=== PATIENT | female | born 1955 | race Caucasian/White ===

== ENCOUNTER 2022-04-10 22:28 | Observation (INO) ==
[2022-04-10] MEDS ORDERED: dilTIAZem HCl 5 MG/ML 5 ML VIAL IV STA (22:55)
[2022-04-10] MEDS ORDERED: dilTIAZem HCl 5 MG/ML 5 ML VIAL IV ONE (22:56)
[2022-04-10 22:57] LABS: Basophils # (auto) 0.03 K/uL (0-0.2); Basophils % (auto) 0.5 %; Eosinophils # (auto) 0.19 K/uL (0-0.50); Immature Granulocytes # (auto) 0.01 K/uL (0.00-0.02); Immature Granulocytes % (auto) 0.2 %; Lymphocytes # (auto) 2.64 K/uL (1.2-3.4); Lymphocytes % (auto) 41.1 %; Mean Corpuscular Hemoglobin 31.5 pg (25.0-34.0); Mean Corpuscular Hgb Conc 34.1 g/dL (32.0-36.0); Mean Corpuscular Volume 92.3 fL (80.0-100.0); Mean Platelet Volume 10.8 fL (9.4-12.3); Monocytes # (auto) 0.45 K/uL (0.24-0.82); Neutrophils % (auto) 48.2 %; Platelet Count 237 K/uL (130-400); RDW Coefficient of Variation 12.8 % (11.5-14.5); RDW Standard Deviation 43.6 fL (36.4-46.3); Red Blood Count 4.44 M/uL (3.93-5.22); White Blood Count 6.42 K/ul (4.8-10.8)
[2022-04-10] MEDS ORDERED: LORazepam 2 MG/2 ML SYR IV STA (23:02)
[2022-04-10] MEDS ORDERED: STAT IV Infusion **Titration per Protocol STA (23:05)
[2022-04-10 23:10] LABS: Partial Thromboplastin Ratio 0.9; Prothrombin Time 10.3 Seconds (9.0-12.0)
[2022-04-10] MEDS ORDERED: dilTIAZem HCL 125 MG in DEXTROSE 5% 100 ML IV SCH (23:15)
[2022-04-10 23:28] LABS: Albumin Globulin Ratio 1.4 (0.9-2); Albumin Level 4.2 gm/dl (3.4-5.0); BUN Creatinine Ratio 17.9 (10-20); Bilirubin,Total 0.4 mg/dl (0.2-1.0); Calcium 9.3 mg/dl (8.5-10.1); Creatinine Clr Calc Pharmacy 95.7 ml/min; Est GFR (African American) 72.3 ml/min; Est GFR (Non-African American) 62.4 ml/min; Globulin 2.9 gm/dl (2.5-4.0); Potassium 4.4 mmol/L (3.5-5.1); Total Protein 7.1 gm/dl (6.0-8.3); Troponin I High Sensitivity 5.8 pg/ml (0-14)
[2022-04-10] MEDS ORDERED: SODIUM CHLORIDE 0.9% 1000ML 1,000 ML IV ONE (23:33)
[2022-04-10] MEDS ORDERED: THIAMINE HCL 100 MG in SYRINGE 9 ML IV STA (23:51)
[2022-04-11] MEDS ORDERED: METOPROLOL TARTRATE 25 MG TAB PO STA (00:25)
--- NOTE | 2022-04-11 00:28 | History & Physical Report ---
Date of Service April 11, 2022 Assessment & Plan (1) Atrial fibrillation with rapid ventricular response: Plan: ? Secondary to alcohol binging History PVCs hypertension, currently stable past tobacco abuse PCU Beta-bev for rate control IV heparin for thromboembolic prophylaxis TTE, Cardiology consult Re: New onset A. fib DT precautions Initiate ROLA S once with signs of alcohol withdrawal DVT prophylaxis with IV heparin Full code Text document was generated using [employer] voice recognition software. It may contain grammatical or spelling errors. Kindly contact undersigned for clarification of any documentation item in question. History of Present Illness Chief Complaint: Palpitations Primary Care Provider: Dr. Arnold (PCP) and Dr. Coleman (dance director) from [place] [employer], [place] History obtained from patient, family, and records. Patient maintains residences in [place], [place] and [place]. Medical history significant for hypertension, episodic PVCs, past tobacco abuse. Last year, patient noted palpitations. Found to have PVCs on dance director work-up from [place]. Patient prescribed metoprolol to be taken as needed for bothersome palpitations. Patient in town over the weekend. Admits to alcohol binging from time to time. Yesterday afternoon, patient experienced palpitations a little more severe and protracted than usual. No response to 2 tablets of metoprolol. Patient also took a baby aspirin. No actual chest pain, SOB or stress. Patient brought to ER for evaluation. Patient noted to be in rapid A. fib at the ER. IV Cardizem bolus administered at the ER. 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 Allergies Allergy/AdvReac Type Severity Reaction Status Date / Time bacitracin Allergy Rash Verified 04/10/22 23:55 [From Neosporin ([id number])] neomycin Allergy Rash Verified 04/10/22 23:55 [From Neosporin ([id number])] polymyxin B Allergy Rash Verified 04/10/22 23:55 [From Neosporin ([id number])] Home Medications Medication Instructions Recorded Confirmed Type alprazolam 0.5 mg tablet 0.5 mg PO DAILY PRN Anxiety 04/10/22 04/10/22 History cholecalciferol (vitamin D3) 50 2,000 unit PO DAILY 04/10/22 04/11/22 History mcg (2,000 unit) tablet (Vitamin D3) gabapentin 600 mg tablet 1,200 mg PO BID 04/10/22 04/10/22 History losartan 50 mg tablet 50 mg PO DAILY 04/10/22 04/10/22 History melatonin 5 mg tablet 5 mg PO HS PRN Sleep 04/10/22 04/10/22 History omega 0-ilz-vkg-fish oil 1,200 mg 1,200 cap PO DAILY 04/10/22 04/11/22 History (144 mg-216 mg) capsule (Fish Oil) vitamin B complex 1 tab PO DAILY 04/10/22 04/11/22 History Past Med/Surg History Medical History High blood pressure Surgical History Hx of cholecystectomy Social History Smoking Status: Former smoker Hx Alcohol Use: Yes Alcohol type: wine Hx Substance Use: No Preferred Language: French Communication Ability: Effective 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: No Beliefs That Will Affect Care: Hindu Current Living Situation: Spouse Other Information That Helps Us Care for You: No Feels Safe at Home: Yes Safety Concerns: Feels Safe At This Time Assistive Devices: Glasses Assistive Devices Comment: Pt deaf right ear Review of Systems Review of Systems: As per HPI, all other systems reviewed and negative Physical Exam Physical Exam: GENERAL: Comfortable, pleasant, morbidly obese, no respiratory distress SKIN: Normal color, warm HEENT: [place] palpebral conjunctivae, no ptosis, moist buccal mucosa NECK : Supple, short neck, no tenderness CHEST : CTA, no tenderness HEART : Irregular, no obvious murmurs ABDOMEN: distention, nontender EXTREMITIES : Minimal LE swelling/tenderness, no other conspicuous deformities noted NEUROLOGIC : Coherent, no facial asymmetry, no other gross focality Results & Data Results & Data ([facility]) Vital Signs (Past 12 Hours) Vital Signs Temp Pulse Resp BP Pulse Ox O2 Del Method 04/10/22 23:31 112 H 16 116/72 96 Room Air 04/10/22 23:19 86 17 109/63 94 Room Air 04/10/22 23:01 78 24 104/71 95 Room Air 04/10/22 22:51 150 H 25 H 162/123 H 96 Room Air 04/10/22 22:31 36.5 C 117 H 18 148/95 H 95 Room Air Laboratory Results Laboratory Results WBC 6.42 K/ul (4.8-10.8) 04/10/22 22:42 RBC 4.44 M/uL (3.93-5.22) 04/10/22 22:42 Hgb 14.0 g/dl (12.0-16.0) 04/10/22 22:42 Hct 41.0 % (34.1-44.9) 04/10/22 22:42 MCV 92.3 fL (80.0-100.0) 04/10/22 22:42 MCH 31.5 pg (25.0-34.0) 04/10/22 22:42 MCHC 34.1 g/dL (32.0-36.0) 04/10/22 22:42 RDW Std Deviation 43.6 fL (36.4-46.3) 04/10/22 22:42 RDW Coeff of Jian 12.8 % (11.5-14.5) 04/10/22 22:42 Plt Count 237 K/uL (130-400) 04/10/22 22:42 MPV 10.8 fL (9.4-12.3) 04/10/22 22:42 Immature Gran % (Auto) 0.2 % 04/10/22 22:42 Neut % (Auto) 48.2 % 04/10/22 22:42 Lymph % (Auto) 41.1 % 04/10/22 22:42 [place] % (Auto) 7.0 % 04/10/22 22:42 Eos % (Auto) 3.0 % 04/10/22 22:42 Baso % (Auto) 0.5 % 04/10/22 22:42 Neut # (Auto) 3.10 K/uL (1.4-6.5) 04/10/22 22:42 Lymph # (Auto) 2.64 K/uL (1.2-3.4) 04/10/22 22:42 [place] # (Auto) 0.45 K/uL (0.24-0.82) 04/10/22 22:42 Eos # (Auto) 0.19 K/uL (0-0.50) 04/10/22 22:42 Baso # (Auto) 0.03 K/uL (0-0.2) 04/10/22 22:42 Immature Gran # (Auto) 0.01 K/uL (0.00-0.02) 04/10/22 22:42 PT 10.3 Seconds (9.0-12.0) 04/10/22 22:42 INR 1.0 (0.9-1.1) 04/10/22 22:42 APTT 26.0 Seconds (21.0-31.0) 04/10/22 22:42 PTT Ratio 0.9 04/10/22 22:42 Sodium 140 mmol/L (136-145) 04/10/22 22:42 Potassium 4.4 mmol/L (3.5-5.1) 04/10/22 22:42 Chloride 107 mmol/L (98-107) 04/10/22 22:42 Carbon Dioxide 25 mmol/L (21-32) 04/10/22 22:42 Anion Gap 8 (3-11) 04/10/22 22:42 BUN 17 mg/dl (6-23) 04/10/22 22:42 Creatinine 0.95 mg/dl (0.6-1.2) 04/10/22 22:42 Est Cr Clr Drug Dosing 95.7 ml/min 04/10/22 22:42 Est GFR ( Amer) 72.3 ml/min 04/10/22 22:42 Est GFR (Non-Af Amer) 62.4 ml/min 04/10/22 22:42 BUN/Creatinine Ratio 17.9 (10-20) 04/10/22 22:42 Glucose 109 mg/dl (70-99(Fasting)) H 04/10/22 22:42 Calcium 9.3 mg/dl (8.5-10.1) 04/10/22 22:42 Magnesium 2.0 mg/dl (1.7-2.4) 04/10/22 22:31 Total Bilirubin 0.4 mg/dl (0.2-1.0) 04/10/22 22:42 AST 16 U/L (13-39) 04/10/22 22:42 ALT 15 U/L (7-52) 04/10/22 22:42 Alkaline Phosphatase 58 U/L (34-104) 04/10/22 22:42 Troponin I High Sens 5.8 pg/ml (0-14) 04/10/22 22:42 Total Protein 7.1 gm/dl (6.0-8.3) 04/10/22 22:42 Albumin 4.2 gm/dl (3.4-5.0) 04/10/22 22:42 Globulin 2.9 gm/dl (2.5-4.0) 04/10/22 22:42 Albumin/Globulin Ratio 1.4 (0.9-2) 04/10/22 22:42 TSH 1.714 uIu/ml (0.300-4.500) 04/10/22 22:42 SARS-CoV-2, RNA, NAAT NEGATIVE (NEGATIVE) 04/10/22 23:02 Diagnostic Findings Chest x-ray as per my interpretation atelectasis EKG as per my interpretation : Rate 140, A. fib, normal axis, ST depression anterolateral leads
[2022-04-11] MEDS ORDERED: ALPRAZolam 0.5 MG TABLET PO PRN (00:36)
[2022-04-11] MEDS ORDERED: Heparin IV Adult Wt-Based Standard *NO* Bolus Protocol IV STA (00:41)
[2022-04-11] MEDS ORDERED: SODIUM CHLORIDE 0.9% 1000ML 1,000 ML IV ONE (00:51)
[2022-04-11] MEDS: HEPARIN SODIUM/DEXTROSE 25,000 UNITS/500 ML BAG IV SCH ×2 (00:55→14:08)
--- NOTE | 2022-04-11 01:07 | Emergency Department Note ---
History of Present Illness General Chief complaint: Arrhythmia/Palpitations Stated complaint: IRREGULAR HEART BEATS Time Seen by Provider: 04/10/22 22:49 History of Present Illness This 66 yo presents to the ER complaining of racing heart who was binge drinking yesterday at the [facility] Location: Chest Quality: Racing Severity: Moderate Duration: Tonight Timing: Tonight Context: Patient was concerned and came in Modifying factors: better with nothing; worse with nothing No alcohol or drug use today. No history of A. fib. She is visiting from [place]. Patient denies fevers, vomiting, diarrhea, flulike illness. Home Medications Medication Instructions Recorded Confirmed Type alprazolam 0.5 mg tablet 0.5 mg PO DAILY PRN Anxiety 04/10/22 04/10/22 History cholecalciferol (vitamin D3) 50 2,000 unit PO DAILY 04/10/22 04/11/22 History mcg (2,000 unit) tablet (Vitamin D3) gabapentin 600 mg tablet 1,200 mg PO BID 04/10/22 04/10/22 History losartan 50 mg tablet 50 mg PO DAILY 04/10/22 04/10/22 History melatonin 5 mg tablet 5 mg PO HS PRN Sleep 04/10/22 04/10/22 History omega 0-qpj-ymz-fish oil 1,200 mg 1,200 cap PO DAILY 04/10/22 04/11/22 History (144 mg-216 mg) capsule (Fish Oil) vitamin B complex 1 tab PO DAILY 04/10/22 04/11/22 History Allergies Allergy/AdvReac Type Severity Reaction Status Date / Time bacitracin Allergy Rash Verified 04/10/22 23:55 [From Neosporin ([id number])] neomycin Allergy Rash Verified 04/10/22 23:55 [From Neosporin ([id number])] polymyxin B Allergy Rash Verified 04/10/22 23:55 [From Neosporin ([id number])] Past Med/Surg History Medical History High blood pressure Surgical History Hx of cholecystectomy Social History Smoking Status: Former smoker Feels Safe at Home: Yes Review of Systems A total of 10 systems reviewed and were otherwise negative Physical Exam Vital Signs Vital Signs - 24 hr 04/10/22 22:31 04/10/22 22:51 04/10/22 23:01 Temperature 36.5 C Temperature Source Temporal Artery Scan Pulse Rate 117 H 150 H 78 Pulse Rate from SpO2 Sensor 99 H Respiratory Rate 18 25 H 24 Respiratory Effort / Characteristics Non-Labored Spontaneous Respiratory Depth Normal Blood Pressure 148/95 H 162/123 H 104/71 Blood Pressure Mean 112 136 82 Blood Pressure Position Sitting Pulse Oximetry 95 96 95 Oxygen Delivery Method Room Air Room Air Room Air Sepsis Recent Fever Within 48 Hours No Sepsis New/Unexplained Change in Mental Status N/A Sepsis Action Taken by Nursing No Action Required 04/10/22 23:19 04/10/22 23:31 04/11/22 00:02 Temperature Temperature Source Pulse Rate 86 112 H 115 H Pulse Rate from SpO2 Sensor 74 Respiratory Rate 17 16 18 Respiratory Effort / Characteristics Respiratory Depth Blood Pressure 109/63 116/72 129/91 Blood Pressure Mean 78 86 103 Blood Pressure Position Pulse Oximetry 94 96 98 Oxygen Delivery Method Room Air Room Air Room Air Sepsis Recent Fever Within 48 Hours Sepsis New/Unexplained Change in Mental Status Sepsis Action Taken by Nursing VITALS: Vitals are noted on the nurse's note and reviewed by myself. Vital signs tachycardic. GENERAL: Pleasant female anxious appearing, in no acute distress, nondiaphoretic, well-developed well-nourished. SKIN: The skin was without rashes, erythema, or bruising. There is no tenting of the skin. Capillary reflex less than 2 seconds. HEAD: Normocephalic atraumatic. EARS: External auditory canals clear, EYES: Pupils equal round and reactive to light and accommodation. Conjunctivae without injection, sclerae without icterus. Extraocular movements intact. NOSE: Patent, turbinates without inflammation or discharge. MOUTH: Mucous membranes moist. Pharynx without erythema or exudate. Uvula midline. Airway patent. Tongue does not deviate. NECK: Supple without nuchal rigidity. No lymphadenopathy. No thyromegaly. Cervical spine is nontender. No JVD. HEART: Tachycardic irregularly irregular LUNGS: Clear to auscultation bilaterally without wheezes, rales or rhonchi. No retractions or accessory muscle use. ABDOMEN: Positive bowel sounds x 4. Normal tympanic percussion. Soft, nontend er, without masses or organomegaly. Espinoza sign negative. No guarding or rebound tenderness. No CVA tenderness MUSCULOSKELETAL: No muscle atrophy, erythema, noted. NEURO: Patient was alert and oriented to person place and time. Normal sensation to light and sharp touch. No focal neurological deficits. Course Administered Medications Heparin Sodium/Dextrose (Heparin Sodium/Dextrose) 25,000 units in 500 mls @ 37 mls/hr IV .[id number] COUNTS INCLUDE 234 BEDS AT THE [facility]; Protocol Stop: 05/11/22 00:44 Last Admin: 04/11/22 00:55 Dose: 1,850 units/hr, 37 mls/hr Documented By: WHIT Co-signed By: MARIA Discontinued Medications Diltiazem HCl (Diltiazem Hcl 5 Mg/Ml 5 Ml Vial) 20 mg IV NOW STA Stop: 04/10/22 22:56 Last Admin: 04/10/22 22:58 Dose: 20 mg Documented By: WHIT Co-signed By: GRICELDA Diltiazem HCl (Diltiazem Hcl 5 Mg/Ml 5 Ml Vial) Confirm Administered Dose 25 mg IV .STK-MED ONE Stop: 04/10/22 22:57 Last Admin: 04/10/22 22:59 Dose: Not Given Documented By: WHIT Diltiazem HCl 125 mg/ Dextrose 125 mls @ 5 mls/hr IV .Q24H COUNTS INCLUDE 234 BEDS AT THE [facility]; Protocol Stop: 05/10/22 23:14 Last Admin: 04/11/22 00:50 Dose: Not Given Documented By: WHIT Sodium Chloride (Nss 1000ml) 1,000 mls @ 999 mls/hr IV .Q1H1M ONE Stop: 04/11/22 00:33 Last Admin: 04/10/22 23:52 Dose: 999 mls/hr Documented By: WHIT Thiamine HCl 100 mg/ Syringe 10 mls @ 2 mls/min IV NOW STA Stop: 04/10/22 23:55 Last Admin: 04/11/22 00:13 Dose: 2 mls/min Documented By: WHIT Lorazepam (Lorazepam 2 Mg/2 Ml Syr) 1 mg IV NOW STA; Protocol Stop: 04/10/22 23:03 Last Admin: 04/10/22 23:09 Dose: 1 mg Documented By: WHIT Metoprolol Tartrate (Metoprolol Tartrate 25 Mg Tab) 25 mg PO NOW STA Stop: 04/11/22 00:26 Last Admin: 04/11/22 00:59 Dose: 25 mg Documented By: KATHERINE Co-signed By: WHIT Critical Care Time Critical Care Time: Yes Total Critical Care Time: 35 I have personally spent 35 minutes of critical care time in the direct management of this patient. This includes bedside care, interpretation of diagnostic studies, and testing, discussion with consultants, patient, and family members, and other required patient management activities. This 35 minutes is in excess of all separately billable procedures. Medical Decision Making Medical Records Attestation: I reviewed the patient's medical records. Home Medications Current Medication List: was personally reviewed by me Laboratory Data Attestation: I reviewed the patient's lab results. Result diagrams: 04/10/22 22:42 04/10/22 22:42 Lab Results 04/10/22 04/10/22 04/10/22 Range/Units 22:31 22:42 22:42 WBC 6.42 (4.8-10.8) K/ul RBC 4.44 (3.93-5.22) M/uL Hgb 14.0 (12.0-16.0) g/dl Hct 41.0 (34.1-44.9) % MCV 92.3 (80.0-100.0) fL MCH 31.5 (25.0-34.0) pg MCHC 34.1 (32.0-36.0) g/dL RDW Std Deviation 43.6 (36.4-46.3) fL RDW Coeff of Jian 12.8 (11.5-14.5) % Plt Count 237 (130-400) K/uL MPV 10.8 (9.4-12.3) fL Immature Gran % (Auto) 0.2 % Neut % (Auto) 48.2 % Lymph % (Auto) 41.1 % [place] % (Auto) 7.0 % Eos % (Auto) 3.0 % Baso % (Auto) 0.5 % Neut # (Auto) 3.10 (1.4-6.5) K/uL Lymph # (Auto) 2.64 (1.2-3.4) K/uL [place] # (Auto) 0.45 (0.24-0.82) K/uL Eos # (Auto) 0.19 (0-0.50) K/uL Baso # (Auto) 0.03 (0-0.2) K/uL Immature Gran # (Auto) 0.01 (0.00-0.02) K/uL PT 10.3 (9.0-12.0) Seconds INR 1.0 (0.9-1.1) APTT 26.0 (21.0-31.0) Seconds PTT Ratio 0.9 Sodium (136-145) mmol/L Potassium (3.5-5.1) mmol/L Chloride (98-107) mmol/L Carbon Dioxide (21-32) mmol/L Anion Gap (3-11) BUN (6-23) mg/dl Creatinine (0.6-1.2) mg/dl Est Cr Clr Drug Dosing ml/min Est GFR ( Amer) ml/min Est GFR (Non-Af Amer) ml/min BUN/Creatinine Ratio (10-20) Glucose (70-99(Fasting)) mg/dl Calcium (8.5-10.1) mg/dl Magnesium 2.0 (1.7-2.4) mg/dl Total Bilirubin (0.2-1.0) mg/dl AST (13-39) U/L ALT (7-52) U/L Alkaline Phosphatase (34-104) U/L Troponin I High Sens (0-14) pg/ml Total Protein (6.0-8.3) gm/dl Albumin (3.4-5.0) gm/dl Globulin (2.5-4.0) gm/dl Albumin/Globulin Ratio (0.9-2) TSH (0.300-4.500) uIu/ml SARS-CoV-2, RNA, NAAT (NEGATIVE) 04/10/22 04/10/22 04/10/22 Range/Units 22:42 22:42 23:02 WBC (4.8-10.8) K/ul RBC (3.93-5.22) M/uL Hgb (12.0-16.0) g/dl Hct (34.1-44.9) % MCV (80.0-100.0) fL MCH (25.0-34.0) pg MCHC (32.0-36.0) g/dL RDW Std Deviation (36.4-46.3) fL RDW Coeff of Jian (11.5-14.5) % Plt Count (130-400) K/uL MPV (9.4-12.3) fL Immature Gran % (Auto) % Neut % (Auto) % Lymph % (Auto) % [place] % (Auto) % Eos % (Auto) % Baso % (Auto) % Neut # (Auto) (1.4-6.5) K/uL Lymph # (Auto) (1.2-3.4) K/uL [place] # (Auto) (0.24-0.82) K/uL Eos # (Auto) (0-0.50) K/uL Baso # (Auto) (0-0.2) K/uL Immature Gran # (Auto) (0.00-0.02) K/uL PT (9.0-12.0) Seconds INR (0.9-1.1) APTT (21.0-31.0) Seconds PTT Ratio Sodium 140 (136-145) mmol/L Potassium 4.4 (3.5-5.1) mmol/L Chloride 107 (98-107) mmol/L Carbon Dioxide 25 (21-32) mmol/L Anion Gap 8 (3-11) BUN 17 (6-23) mg/dl Creatinine 0.95 (0.6-1.2) mg/dl Est Cr Clr Drug Dosing 95.7 ml/min Est GFR ( Amer) 72.3 ml/min Est GFR (Non-Af Amer) 62.4 ml/min BUN/Creatinine Ratio 17.9 (10-20) Glucose 109 H (70-99(Fasting)) mg/dl Calcium 9.3 (8.5-10.1) mg/dl Magnesium (1.7-2.4) mg/dl Total Bilirubin 0.4 (0.2-1.0) mg/dl AST 16 (13-39) U/L ALT 15 (7-52) U/L Alkaline Phosphatase 58 (34-104) U/L Troponin I High Sens 5.8 (0-14) pg/ml Total Protein 7.1 (6.0-8.3) gm/dl Albumin 4.2 (3.4-5.0) gm/dl Globulin 2.9 (2.5-4.0) gm/dl Albumin/Globulin Ratio 1.4 (0.9-2) TSH 1.714 (0.300-4.500) uIu/ml SARS-CoV-2, RNA, NAAT NEGATIVE (NEGATIVE) Imaging Data Attestation: I personally reviewed and interpreted this imaging study as follows: MDM Narrative Prior records/ancillary studies reviewed. Triage Nursing notes reviewed. Additional history obtained from partner. The patient's history was concerning for palpitations. Differential diagnosis: Etiologies such as premature contractions, electrolyte abnormality, cardiac dysrhythmia, thyroid dysfunction, pulmonary embolism, infection, gastrointestinal, as well as others were entertained. Physical examination: Benign as above. ER treatment provided: Cardizem with drip IV fluids, Ativan On reassessment the patient felt better. Diagnostic interpretation by me: An order was placed for continuous cardiac monitoring. The monitor shows a rate of 50-1 60 with a A. fib rhythm. The electrocardiogram was ordered for tachycardia EKG: Irregularly irregular with ventricular rate of 141. Impression A. fib with RVR interpreted by myself EKG shows no interval abnormalities such as QT prolongation or WPW. There are no findings to suggest Brugada syndrome. Hypertrophic cardiomyopathy was considered but there are no clear historical elements pointing toward this. EKG is not suggestive. The QRS voltage is not extremely large The labs revealed negative troponin. Euthyroid Imaging studies: Chest x-ray with no acute consolidation, pneumothorax or free air per my interpretation Consultation: A consultation was placed with the hospitalist. The case was discussed and diagnostics were reviewed. The patient was evaluated in the ER for further treatment. This appears to be consistent with new onset A. fib with RVR. Patient was placed on a Cardizem drip. She was reassessed multiple times. Heart rate improved. Medicine is consulted. She will be evaluated for admission. patient was informed this could be related to her binge drinking from yesterday.. By the evaluation outlined above emergent etiologies such as electrolyte abnormality, thyroid dysfunction, pulmonary embolism, infection, as well as others were deemed relatively unlikely. The pt informed about the findings as listed above. All questions were answered and pleased with the treatment. The chart was completed utilizing [employer] voice recognition software. Grammatical errors, random word insertions, pronoun errors, and incomplete sentences are an occassional consequence of this system due to software limitations, ambient noise, and hardware issues. Any formal questions or concerns about the content, text, or information contained within the body of this dictation should be directly addressed to the physician assistant director of financial aid for clarification. Impression & Plan Atrial fibrillation with rapid ventricular response Discharge Plan Visit Data Chief Complaint: Arrhythmia/Palpitations Stated Complaint: IRREGULAR HEART BEATS ED Provider: Ana Noriega ED Midlevel Provider: Brooklynn Rapp Discharge Problem: Atrial fibrillation with rapid ventricular response Patient Disposition: Admitted As Inpatient Condition: Good Forms Stand Alone Forms: [facility] Prescriptions Prescriptions: No Action losartan 50 mg tablet 50 mg PO DAILY gabapentin 600 mg tablet 1,200 mg PO BID alprazolam 0.5 mg tablet 0.5 mg PO DAILY PRN (Reason: Anxiety) vitamin B complex [B Complete] Tablet 1 tab PO DAILY melatonin 5 mg Tablet 5 mg PO HS PRN (Reason: Sleep) cholecalciferol (vitamin D3) [Vitamin D3] 50 mcg (2,000 unit) Tablet 2,000 unit PO DAILY omega 8-abi-bfk-fish oil [Fish Oil] 1,200 (144-216) mg Capsule 1,200 cap PO DAILY Referrals Referrals: PCP,NO [Primary Care Provider] -
[2022-04-11] MEDS ORDERED: ACETAMINOPHEN 325 MG TAB PO PRN (01:26)
[2022-04-11] MEDS ORDERED: oxyCODONE HCL IR 5 MG TAB (IMMEDIATE RELEASE) PO PRN (01:26)
[2022-04-11] MEDS ORDERED: NITROGLYCERIN SL 0.4 MG/TAB TAB SL PRN (01:26)
[2022-04-11] MEDS ORDERED: PROMETHAZINE HCL 12.5 MG in SODIUM CHLORIDE 0.9% 50 ML IV PRN (01:26)
[2022-04-11] MEDS: MELATONIN 3 MG TAB PO PRN ×2 (02:06→21:10)
[2022-04-11] MEDS: GABAPENTIN 600 MG TAB PO SCH ×3 (02:14→21:07)
--- NOTE | 2022-04-11 07:21 | XRay Report ---
XR chest 1V portable HISTORY: 66 years-old Female Chest Pain . Acute chest pain COMPARISON: None TECHNIQUE: AP view of the chest FINDINGS: Cardiomediastinal and hilar silhouettes are within normal limits. No pneumothorax, pleural effusion o r overt pulmonary edema. Mild subsegmental bibasilar densities favoring atelectasis. Degenerative rocco nges of the shoulders and spine. Degenerative loose bodies within the left subscapularis recess. IMPRESSION: No acute processes of the chest. ACT 112: Negative or not required by law. The above report was generated using voice recognition software. It may contain grammatical, syntax o r spelling errors. Electronically signed by: Jatinder Calles M.D. 04/11/2022 7:19 AM
[2022-04-11 07:31] LABS: Basophils # (auto) 0.02 K/uL (0-0.2); Basophils % (auto) 0.4 %; Eosinophils % (auto) 3.8 %; Hematocrit (blood only) 37.7 % (34.1-44.9); Hemoglobin 12.7 g/dl (12.0-16.0); Immature Granulocytes # (auto) 0.02 K/uL (0.00-0.02); Immature Granulocytes % (auto) 0.4 %; Lymphocytes # (auto) 2.32 K/uL (1.2-3.4); Lymphocytes % (auto) 43.9 %; Mean Corpuscular Hemoglobin 32.1 pg (25.0-34.0); Mean Corpuscular Hgb Conc 33.7 g/dL (32.0-36.0); Mean Corpuscular Volume 95.2 fL (80.0-100.0); Mean Platelet Volume 10.9 fL (9.4-12.3); Monocytes # (auto) 0.37 K/uL (0.24-0.82); Neutrophils # (auto) 2.36 K/uL (1.4-6.5); Neutrophils % (auto) 44.5 %; Platelet Count 189 K/uL (130-400); RDW Coefficient of Variation 13.1 % (11.5-14.5); RDW Standard Deviation 45.6 fL (36.4-46.3); Red Blood Count 3.96 M/uL (3.93-5.22); White Blood Count 5.29 K/ul (4.8-10.8)
[2022-04-11 07:58] LABS: BUN Creatinine Ratio 16.7 (10-20); Calcium 8.7 mg/dl (8.5-10.1); Creatinine Clr Calc Pharmacy 86.5 ml/min; Est GFR (African American) 71.4 ml/min; Est GFR (Non-African American) 61.6 ml/min; Potassium 4.1 mmol/L (3.5-5.1)
[2022-04-11] MEDS: LOSARTAN POTASSIUM 50 MG TAB PO SCH (08:11)
[2022-04-11] MEDS: FOLIC ACID 1 MG TAB PO SCH (08:11)
[2022-04-11] MEDS: MULTIVITAMIN TAB PO SCH (08:11)
[2022-04-11] MEDS ORDERED: METOPROLOL TARTRATE 50 MG TAB PO SCH (08:15)
[2022-04-11] MEDS ORDERED: METOPROLOL TARTRATE 1 MG/ML VIAL IV PRN ×2 (08:23→14:35)
[2022-04-11 08:25] LABS: Partial Thromboplastin Ratio 1.8
[2022-04-11 08:30] LABS: Partial Thromboplastin Time 50.5 Seconds (21.0-31.0)
[2022-04-11] MEDS ORDERED: METOPROLOL TARTRATE 25 MG TAB PO SCH (09:00)
--- NOTE | 2022-04-11 09:49 | Cardiology Consultation ---
Date of Consultation April 11, 2022 Assessment & Plan (1) Atrial fibrillation with rapid ventricular response: (2) Hypertension: (3) Obesity: (4) Alcohol use: Plan Patient presenting to [facility] after approx 9 hours of persistent palpitations beginning around 1:00 PM yesterday. She came to the ER around 10:30 last evening Found to have new onset atrial fibrillation. Likely triggered by outside stressors including excessive alcohol consumption over the last 3 days, caffeine consumption, and lack of sleep. No known history of afib. Started on IV heparin and IV saline overnight. Initially treated with IV diltiazem but as rates improved, oral metoprolol initiated and titrated. This morning she received Metoprolol 50 mg, rates remain persistent elevated in the 110-130 range at rest. She is symptomatic with palpitations at rest, but denies other acute symptoms (CP/SOB) Will increase metoprolol to 75 mg BID. Continue IV heparin. Anticoagulation discussed and recommended - [id number] score of 3 (female, age, HTN) with 3.2% stroke risk per year She believes her insurance does not cover Eliquis, but possibly Xarelto. Will consult case management for discharge planning and which anticoagulant will be covered/affordable. Given she presented within approx 10 hours of onset, and has been anticoagulated since admission, will consider DCCV in the AM if patient remains in afib. Patient already ate breakfast this morning. NPO after midnight. Echo was with preserved LVEF and no significant valvular disease. Moderate left atrial enlargement. Troponin unremarkable as well. Case discussed with Dr. Hagan. Will follow Supervising Physician Co-Signing Physician Notes Patient seen examined the bedside. Describes acute onset of palpitations yesterday at approximately 1 PM. Admits to excessive alcohol intake over the past 72 hours. This morning she continues to note palpitations. Telemetry reveals A. fib in the 100s. Notes prior history of SVT and palpitations, however, denies prior history of atrial fibrillation. PE: Tachycardic. General: NAD, overweight, awake alert and orient x3. Heart: Regular rhythm, tachycardic, normal S1-S2. No murmur. Lungs: Clear bilateral, no rales, rhonchi, wheeze. Extremities: No edema. A/P: Agree with above PA-C history, physical exam, assessment and plan. Continue oral metoprolol and IV heparin. Patient will be made n.p.o. except medications after midnight for external direct-current cardioversion in a.m. History of Present Illness Reason for Consultation: Atrial fibrillation Requesting Physician: Dr. Walters Attending Physician: Dr. Hagan History of Present Illness Patient is a 66 year old female with past history significant for hypertension, obesity, PVC's (based on patient description), and chronic alcohol use. Patient's permanent residence is in [place] where she helps to care for her 97 year old father. She also has a residence in [place] and hopes to move here some day. She was in town for the football game this weekend. Patient reports she was sitting at home yesterday around 1:00 PM and developed sudden onset palpitations. She tried checking her pulse and "it was too fast". She tried to lay down and take a nap, but could not sleep. All day her symptoms persisted. She tried to go to bed around 10:00 PM but could not fall asleep due to persistent palpitations, so she came to the ER. On arrival, EKG demonstrated afib with RVR. Labs were unremarkable. She was started on IV heparin for anticoagulation, and IV diltiazem and oral metoprolol for rate control. Diltiazem was stopped overnight. Metoprolol titrated this morning to 50 mg BID. HR's persistently elevated around 110 this morning, about 2 hours after AM meds. At time of consult, patient resting in bed comfortably but reports ongoing palpitations, difficulty sleeping. No chest pain or SOB. No orthopnea, PND or LE edema. No dizziness or lightheadedness. No fever, cough, chills. She admits to chronic daily alcohol intake. She also admits to likely increased consumption over the last few days, with lack of sleep. She went to a concert night in [facility], got home late, with little sleep and drove to [place] on Monday. They had company all weekend, tailgating and watching football game, and admits to drinking alot of wine and shots on Monday. Monday morning, she was in usual state of health. Drank 3 cups of coffee and admits to finishing a bottle of wine that was left over from Monday. It was after this alcohol consumption and 3rd cup of coffee the palpitations began. She denies a cardiac history of CAD, [place], CHF, valvular disease. She was evaluated by a senior physical therapist in [place] last year for palpitations. Was told she had "skipped beats" and possible SVT, but no treatment needed. She had an echo at that time, which she reports as "normal" and she wore a holter monitor, which she said was "normal". She denies history of afib in the past, but admits her family members have afib and her has a history of afib, so she is familiar with the arrhythmia. Allergies Allergy/AdvReac Type Severity Reaction Status Date / Time bacitracin Allergy Rash Verified 04/10/22 23:55 [From Neosporin ([id number])] neomycin Allergy Rash Verified 04/10/22 23:55 [From Neosporin ([id number])] polymyxin B Allergy Rash Verified 04/10/22 23:55 [From Neosporin ([id number])] Home Medications Medication Instructions Recorded Confirmed Type alprazolam 0.5 mg tablet 0.5 mg PO DAILY PRN Anxiety 04/10/22 04/10/22 History cholecalciferol (vitamin D3) 50 2,000 unit PO DAILY 04/10/22 04/11/22 History mcg (2,000 unit) tablet (Vitamin D3) gabapentin 600 mg tablet 1,200 mg PO BID 04/10/22 04/10/22 History losartan 50 mg tablet 50 mg PO DAILY 04/10/22 04/10/22 History melatonin 5 mg tablet 5 mg PO HS PRN Sleep 04/10/22 04/10/22 History omega 0-fqx-ltp-fish oil 1,200 mg 1,200 cap PO DAILY 04/10/22 04/11/22 History (144 mg-216 mg) capsule (Fish Oil) vitamin B complex 1 tab PO DAILY 04/10/22 04/11/22 History Patient History Medical History High blood pressure Surgical History Hx of cholecystectomy Social History Smoking Status: Former smoker Hx Alcohol Use: Yes Alcohol type: wine Hx Substance Use: No Preferred Language: Kinyarwanda Communication Ability: Effective Hvac Tech Required: No Beliefs That Will Affect Care: Yazidi Current Living Situation: Spouse Other Information That Helps Us Care for You: No Feels Safe at Home: Yes Safety Concerns: Feels Safe At This Time Assistive Devices: Glasses Assistive Devices Comment: Pt deaf right ear Review of Systems Review of Systems: All systems reviewed & are unremarkable except as noted in HPI & below Physical Exam Constitutional: WD/WN, vitals as above + obese Eyes: PERRL, conjunctivae normal, anicteric sclerae Neck: trachea midline, no thyromegaly Respiratory: normal respiratory effort, lungs clear to auscultation Cardiovascular: Rate/Rhythm: + tachycardic and + irregularly irregular Heart Sounds: no murmur Palpation: normal PMI Vessels: no JVD Extremities: no edema Gastrointestinal (Abdomen): normal bowel sounds, soft, nontender, no hepatosplenomegaly Musculoskeletal: no cyanosis or clubbing, extremities motor strength 5/5 Skin: no rashes, warm and dry Neurologic: PERRL, EOMI, accommodation nl, no face palsy, no dysarthria Psychiatric: A+Ox3, euthymic affect Results & Data ([facility]) Vital Signs (Past 12 Hours) Vital Signs Temp Pulse Pulse Resp BP BP Pulse Ox 04/11/22 07:00 36.7 C 78 18 143/78 H 18 L 04/11/22 07:08 126 H 04/11/22 01:30 125 H 04/11/22 01:15 04/11/22 01:15 36.6 C 88 18 132/99 98 04/11/22 00:32 115 H 14 138/85 97 04/11/22 00:02 115 H 18 129/91 98 04/10/22 23:31 112 H 16 116/72 96 04/10/22 23:19 86 17 109/63 94 04/10/22 23:01 78 24 104/71 95 04/10/22 22:51 150 H 25 H 162/123 H 96 04/10/22 22:31 36.5 C 117 H 18 148/95 H 95 O2 Del Method 04/11/22 07:00 Room Air 04/11/22 07:08 04/11/22 01:30 04/11/22 01:15 Room Air 04/11/22 01:15 Room Air 04/11/22 00:32 Room Air 04/11/22 00:02 Room Air 04/10/22 23:31 Room Air 04/10/22 23:19 Room Air 04/10/22 23:01 Room Air 04/10/22 22:51 Room Air 04/10/22 22:31 Room Air Laboratory Results Cardiac Enzymes 04/10/22 Range/Units 22:42 AST 16 (13-39) U/L Troponin I High Sens 5.8 (0-14) pg/ml Coagulation 04/10/22 04/11/22 Range/Units 22:42 07:12 PT 10.3 (9.0-12.0) Seconds APTT 26.0 50.5 H* (21.0-31.0) Seconds CBC 04/10/22 04/11/22 Range/Units 22:42 07:12 WBC 6.42 5.29 (4.8-10.8) K/ul RBC 4.44 3.96 (3.93-5.22) M/uL Hgb 14.0 12.7 (12.0-16.0) g/dl Hct 41.0 37.7 (34.1-44.9) % Plt Count 237 189 (130-400) K/uL Neut # (Auto) 3.10 2.36 (1.4-6.5) K/uL Lymph # (Auto) 2.64 2.32 (1.2-3.4) K/uL Graham # (Auto) 0.45 0.37 (0.24-0.82) K/uL Eos # (Auto) 0.19 0.20 (0-0.50) K/uL Baso # (Auto) 0.03 0.02 (0-0.2) K/uL Comprehensive Metabolic Panel 04/10/22 04/11/22 Range/Units 22:42 07:12 Sodium 140 142 (136-145) mmol/L Potassium 4.4 4.1 (3.5-5.1) mmol/L Chloride 107 109 H (98-107) mmol/L Carbon Dioxide 25 30 (21-32) mmol/L BUN 17 16 (6-23) mg/dl Creatinine 0.95 0.96 (0.6-1.2) mg/dl Glucose 109 H 102 H (70-99(Fasting)) mg/dl Calcium 9.3 8.7 (8.5-10.1) mg/dl AST 16 (13-39) U/L ALT 15 (7-52) U/L Alkaline Phosphatase 58 (34-104) U/L Total Protein 7.1 (6.0-8.3) gm/dl Albumin 4.2 (3.4-5.0) gm/dl Intake and Output 04/10/22 04/11/22 04/11/22 22:59 06:59 14:59 Intake Total 1698.917 / 1698.917 668.117 / 668.117 Output Total 200 / 200 Balance 1498.917 / 1498.917 668.117 / 668.117 Intake: IV 1218.917 / 1218.917 668.117 / 668.117 Heparin Sodium/Dextrose 25,000 218.917 / 218.917 93.117 / 93.117 units In 500 ml @ 1,850 UNITS/ HR 37 mls/hr IV .[id number] [facility] Rx #:[id number] Sodium Chloride 0.9% 1000ML 1, 1000 / 1000 575 / 575 000 ml @ 75 mls/hr IV .[id number] ONE Rx#:[id number] Oral 480 / 480 Output: Urine 200 / 200 Other: # Unmeasured Voids 1 Weight 154 kg 152.2 kg Weight Measurement Method Chair Scale Built in [facility] Diagnostic Findings Telemetry reviewed: Persistent afib with rates ranging 110-130's. EKG on arrival: Atrial fibrillation with rapid ventricular response Nonspecific ST abnormality No previous ECGs available Chest X-Ray 04/10/22 22:30 XR chest 1V portable HISTORY: 66 years-old Female Chest Pain . Acute chest pain COMPARISON: None TECHNIQUE: AP view of the chest FINDINGS: Cardiomediastinal and hilar silhouettes are within normal limits. No pneumothorax, pleural effusion or overt pulmonary edema. Mild subsegmental bibasilar densities favoring atelectasis. Degenerative changes of the shoulders and spine. Degenerative loose bodies within the left subscapularis recess. IMPRESSION: No acute processes of the chest. Echo results reviewed: No comparison study. The rhythm is atrial fibrillation with RVR EF 60-65% Mild concentric LVH LA is moderately dilated Trace MR Mild TR Medications Administered Current Inpatient Medications Acetaminophen (Acetaminophen 325 Mg Tab) 650 mg PO Q4H PRN PRN Reason: Pain or Fever Stop: 05/11/22 01:25 Alprazolam (Alprazolam 0.5 Mg Tablet) 0.5 mg PO Q8H PRN PRN Reason: anxiety Stop: 05/11/22 00:35 Folic Acid (Folic Acid 1 Mg Tab) 1 mg PO QAM [facility] Stop: 05/11/22 08:59 Last Admin: 04/11/22 08:11 Dose: 1 mg Gabapentin (Gabapentin 600 Mg Tab) 1,200 mg PO BID [facility] Stop: 05/11/22 01:25 Last Admin: 04/11/22 08:11 Dose: 1,200 mg Heparin Sodium/Dextrose (Heparin Sodium/Dextrose) 25,000 units in 500 mls @ 37 mls/hr IV .[id number] [facility]; Protocol Stop: 05/11/22 00:44 Last Titration: 04/11/22 09:21 Dose: 1,850 units/hr, 37 mls/hr Promethazine HCl 12.5 mg/ (Sodium Chloride) 50.5 mls @ 202 mls/hr IV Q6H PRN PRN Reason: Nausea And Vomiting Stop: 05/11/22 01:25 Losartan Potassium (Losartan Potassium 50 Mg Tab) 50 mg PO DAILY [facility] Stop: 05/11/22 08:59 Last Admin: 04/11/22 08:11 Dose: 50 mg Melatonin (Melatonin 3 Mg Tab) 6 mg PO HS PRN PRN Reason: Sleep Stop: 05/11/22 01:43 Last Admin: 04/11/22 02:06 Dose: 6 mg Metoprolol Tartrate (Metoprolol Tartrate 1 Mg/Ml Vial) 5 mg IV Q6 PRN PRN Reason: Tachycardia HR>120 Stop: 05/11/22 08:22 Metoprolol Tartrate (Metoprolol Tartrate 25 Mg Tab) 75 mg PO BID [facility] Stop: 05/11/22 20:59 Multivitamins (Multivitamin Tab) 1 tab PO QAM [facility] Stop: 05/11/22 08:59 Last Admin: 04/11/22 08:11 Dose: 1 tab Nitroglycerin (Nitroglycerin Sl 0.4 Mg/Tab Tab) 0.4 mg SL UD PRN PRN Reason: Chest Pain Stop: 05/11/22 01:25 Oxycodone HCl (Oxycodone Hcl Ir 5 Mg Tab (Immediate Release)) 5 mg PO Q4H PRN PRN Reason: Pain Stop: 04/25/22 01:25 Thiamine HCl (Thiamine Hcl 100 Mg Tab) 100 mg PO QAM JESSICA Stop: 05/12/22 08:59
[2022-04-11] MEDS ORDERED: METOPROLOL TARTRATE 25 MG TAB PO ONE (10:00)
--- NOTE | 2022-04-11 12:40 | Anesthesiology Consultation ---
Date of Service April 11, 2022 Assessment & Plan (1) Encounter for pre-operative examination: Chart Review Chart Review: accounting representative initiated History Height/Weight Height: 5 ft 5 in Weight: 152.2 kg Allergies Allergy/AdvReac Type Severity Reaction Status Date / Time bacitracin Allergy Rash Verified 04/10/22 23:55 [From Neosporin ([id number]-tde-[id number])] neomycin Allergy Rash Verified 04/10/22 23:55 [From Neosporin ([id number]-ikm-rthtc)] polymyxin B Allergy Rash Verified 04/10/22 23:55 [From Neosporin ([id number]-nke-lfqln)] Medications Home Medications Medication Instructions Recorded Confirmed Last Taken alprazolam 0.5 mg tablet 0.5 mg PO DAILY PRN Anxiety 04/10/22 04/10/22 Unknown cholecalciferol (vitamin D3) 50 2,000 unit PO DAILY 04/10/22 04/11/22 04/11/22 mcg (2,000 unit) tablet (Vitamin D3) gabapentin 600 mg tablet 1,200 mg PO BID 04/10/22 04/10/22 04/10/22 losartan 50 mg tablet 50 mg PO DAILY 04/10/22 04/10/22 04/10/22 melatonin 5 mg tablet 5 mg PO HS PRN Sleep 04/10/22 04/10/22 Unknown omega 4-lhf-bgu-fish oil 1,200 mg 1,200 cap PO DAILY 04/10/22 04/11/22 04/11/22 (144 mg-216 mg) capsule (Fish Oil) vitamin B complex 1 tab PO DAILY 04/10/22 04/11/22 04/11/22 Active Medications Generic Name Dose Route Start Last Admin Trade Name Julienq PRN Reason Stop Dose Admin Folic Acid 1 mg 04/11/22 09:00 04/11/22 08:11 Folic Acid 1 Mg Tab PO 05/11/22 08:59 1 mg QAM JESSICA Administration Gabapentin 1,200 mg 04/11/22 01:26 04/11/22 08:11 Gabapentin 600 Mg Tab PO 05/11/22 01:25 1,200 mg BID JESSICA Administration Heparin Sodium/Dextrose 25,000 units in 500 mls @ 37 mls/hr 04/11/22 00:45 04/11/22 09:21 Heparin Sodium/Dextrose IV 05/11/22 00:44 1,850 units/hr .[id number] JESSICA 37 mls/hr Titration Protocol 1,850 UNITS/HR Losartan Potassium 50 mg 04/11/22 09:00 04/11/22 08:11 Losartan Potassium 50 Mg Tab PO 05/11/22 08:59 50 mg DAILY JESSICA Administration Melatonin 6 mg 04/11/22 01:44 04/11/22 02:06 Melatonin 3 Mg Tab PO 05/11/22 01:43 6 mg HS PRN Administration Sleep Multivitamins 1 tab 04/11/22 09:00 04/11/22 08:11 Multivitamin Tab PO 05/11/22 08:59 1 tab QAM JESSICA Administration Past Medical History Medical History High blood pressure Past Surgical History Surgical History Hx of cholecystectomy Social History Smoking Status: Former smoker Hx Alcohol Use: Yes Alcohol type: wine alcohol intake frequency: 0-2 drinks per day Hx Substance Use: No substance use type: does not use Physical Exam Vital Signs Last Vital Signs Temp 98.4 F 04/11/22 10:30 Pulse 96 H 04/11/22 10:30 Resp 19 04/11/22 10:30 BP 93/57 L 04/11/22 10:30 Pulse Ox 97 04/11/22 10:30 O2 Del Method 04/11/22 10:30 Testing Laboratory Results 04/11/22 07:12 04/11/22 07:12 PT 10.3 Seconds (9.0-12.0) 04/10/22 22:42 INR 1.0 (0.9-1.1) 04/10/22 22:42 APTT 50.5 Seconds (21.0-31.0) H* 04/11/22 07:12 Electrocardiogram Date: 04/10/22 Poor data quality, interpretation may be adversely affected Atrial fibrillation with rapid ventricular response, rate [address] abnormality Abnormal ECG No previous ECGs available Chest X-Ray Date: 04/10/22 Findings: + NAD Echocardiogram Date: 04/11/22 The rhythm is atrial fibrillation with rapid ventricular response EF 60-65% Mild concentric LVH LA is moderately dilated There is trace MR Mild TR
[2022-04-11 12:57] LABS: Estimated Average Glucose 105 mg/dl; Hemoglobin A1C 5.3 % (4.5-5.6)
--- NOTE | 2022-04-11 14:44 | Hospitalist Progress Note ---
Date of Service April 11, 2022 Assessment & Plan (1) Atrial fibrillation with rapid ventricular response: Plan: Afib RVR H/O PVCs -CXR:No acute processes of the chest. -Normal TSH -ECHO: EF 60 to 65%. Mild consult LVH. Left atrium is moderately dilated. Trace mitral regurgitation. Mild tricuspid regurgitation. Continue IV heparin Metoprolol dose increased to 75 mg twice daily Appreciate cardiology input N.p.o. 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 Monitor for withdrawal Continue thiamine, folic acid Hypertension On Losartan Started on Metoprolol as above Past tobacco abuse Denies current use Morbid Obesity BMI: 55.8 Advised Outpatient Sleep Study DVT Px: IV heparin Code Status Full code Admission and Anticipated Discharge Date Admission Date: April 11, 2022 Subjective Patient is seen and examined at bedside States having intermittent palpitation Denies any chest pain, shortness of breath, dizziness, nausea, abdominal pain Offers no other complaint Review of Systems Review of Systems: All systems reviewed & are unremarkable except as noted in Subjective Physical Exam Physical Exam: Physical Exam: Vitals signs as noted above General Appearance:Morbidly Obese, no apparent distress Head: normocephalic, Atraumatic Eyes: normal inspection, EOMI Neck: supple, Trachea midline Respiratory/Chest: Normal breath sounds, CTA, No accessory muscle use Cardiovascular: Irregularly Irregular, tachycardia, No murmur Abdomen/GI:Soft, Non tender, Bowel sounds present Extremities/Musculoskeletal:normal inspection, 1+ edema Neurologic/Psych:AAOX3, grossly no focal neurological deficits Skin: normal color, warm Results & Data Results & Data ([facility]) Vital Signs (Past 12 Hours) Vital Signs Temp Pulse Pulse Resp BP Pulse Ox O2 Del Method 04/11/22 10:30 36.9 C 96 H 19 93/57 L 97 Room Air 04/11/22 07:00 36.7 C 78 18 143/78 H 18 L Room Air 04/11/22 07:08 126 H Laboratory Results Short CBC 04/10/22 04/11/22 Range/Units 22:42 07:12 WBC 6.42 5.29 (4.8-10.8) K/ul Hgb 14.0 12.7 (12.0-16.0) g/dl Hct 41.0 37.7 (34.1-44.9) % Plt Count 237 189 (130-400) K/uL BMP 04/10/22 04/11/22 22:42 07:12 Sodium 140 142 Potassium 4.4 4.1 Chloride 107 109 H Carbon Dioxide 25 30 BUN 17 16 Creatinine 0.95 0.96 Glucose 109 H 102 H Calcium 9.3 8.7 Liver Function 04/10/22 Range/Units 22:42 Total Bilirubin 0.4 (0.2-1.0) mg/dl AST 16 (13-39) U/L ALT 15 (7-52) U/L Alkaline Phosphatase 58 (34-104) U/L Albumin 4.2 (3.4-5.0) gm/dl
[2022-04-11] MEDS: METOPROLOL TARTRATE 25 MG TAB PO SCH (21:07)
[2022-04-12] MEDS: HEPARIN SODIUM/DEXTROSE 25,000 UNITS/500 ML BAG IV SCH (03:39)
--- NOTE | 2022-04-12 05:04 | Electrocardiogram Report ---
Test Reason : Blood Pressure : / mmHG Vent. Rate : 141 BPM Atrial Rate : 178 BPM P-R Int : 000 ms QRS Dur : 088 ms QT Int : 306 ms P-R-T Axes : 000 032 -23 degrees QTc Int : 468 ms Poor data quality, interpretation may be adversely affected Atrial fibrillation with rapid ventricular response Nonspecific ST abnormality Abnormal ECG No previous ECGs available Confirmed by Abhishek Mendenhall ([id number]) on 04/12/2022 5:04:27 AM Referred By: REFERRED SELF Confirmed By:Abhishek Mendenhall
[2022-04-12 05:48] LABS: Hemoglobin 12.7 g/dl (12.0-16.0); Mean Corpuscular Hemoglobin 32.1 pg (25.0-34.0); Mean Corpuscular Hgb Conc 34.3 g/dL (32.0-36.0); Mean Corpuscular Volume 93.4 fL (80.0-100.0); Mean Platelet Volume 10.7 fL (9.4-12.3); Platelet Count 187 K/uL (130-400); RDW Coefficient of Variation 13.2 % (11.5-14.5); RDW Standard Deviation 45.6 fL (36.4-46.3); Red Blood Count 3.96 M/uL (3.93-5.22); White Blood Count 5.58 K/ul (4.8-10.8)
[2022-04-12 06:10] LABS: BUN Creatinine Ratio 16.8 (10-20); Calcium 8.6 mg/dl (8.5-10.1); Creatinine Clr Calc Pharmacy 82.1 ml/min; Est GFR (African American) 67.2 ml/min; Potassium 4.1 mmol/L (3.5-5.1)
[2022-04-12 06:18] LABS: Partial Thromboplastin Ratio 2.1
[2022-04-12 06:42] LABS: Partial Thromboplastin Time 56.7 Seconds (21.0-31.0)
--- NOTE | 2022-04-12 08:12 | Cardioversion ---
Date of Service April 12, 2022 Electrical Cardioversion Rpt Electrical Cardioversion Report Electrical Cardioversion Report Patient was seen and examined, chart and medications reviewed. Procedure and risks explained in detail, informed consent obtained. Patient sedated via anesthesia consult with continuous HR, BP, O2 sat, endtidal CO2 monitoring. Single 150J biphasic syncronized electrical cardioversion performed with successful conversion to sinus,patient aroused having tolerated well EKG : NSR at 62 bpm Plan: medical rx
[2022-04-12] MEDS ORDERED: PROPOFOL IV EMULSION 10 MG/ML 20 ML VIAL IV ONE (08:13)
[2022-04-12] MEDS: GABAPENTIN 600 MG TAB PO SCH (08:52)
[2022-04-12] MEDS: FOLIC ACID 1 MG TAB PO SCH (08:54)
[2022-04-12] MEDS: MULTIVITAMIN TAB PO SCH (08:54)
[2022-04-12] MEDS ORDERED: APIXABAN 5 MG TABLET PO SCH ×2 (09:00)
[2022-04-12] MEDS ORDERED: RIVAROXABAN 20 MG TAB PO SCH (09:00)
[2022-04-12] MEDS ORDERED: THIAMINE HCL 100 MG TAB PO SCH (09:00)
[2022-04-12] MEDS: METOPROLOL TARTRATE 25 MG TAB PO SCH (09:07)
--- NOTE | 2022-04-12 09:10 | Anesthesiology Progress Note ---
Date of Service April 12, 2022 Anesthesia Post Procedure Vital Signs Vital Signs: Temp Pulse Pulse Resp BP BP Pulse Ox 04/12/22 08:58 60 04/12/22 08:57 36.7 C 82 18 105/70 98 04/12/22 08:26 62 18 94/69 L 95 04/12/22 08:11 60 18 91/67 L 98 04/12/22 07:15 124 H 18 135/83 98 04/12/22 07:13 123 H 04/11/22 23:00 114 H 04/12/22 03:21 36.4 C L 116 H 18 108/66 95 04/11/22 23:17 36.6 C 105 H 18 103/77 95 04/11/22 19:30 36.9 C 102 H 18 115/71 96 04/11/22 15:57 121 H 04/11/22 14:50 36.9 C 89 17 97/63 L 98 04/11/22 10:30 36.9 C 96 H 19 93/57 L 97 O2 Del Method 04/12/22 08:58 04/12/22 08:57 Room Air 04/12/22 08:26 Room Air 04/12/22 08:11 Room Air 04/12/22 07:15 Room Air 04/12/22 07:13 04/11/22 23:00 04/12/22 03:21 Room Air 04/11/22 23:17 Room Air 04/11/22 19:30 Room Air 04/11/22 15:57 04/11/22 14:50 Room Air 04/11/22 10:30 Room Air Transfer of Care Handoff Completed per policy Notes Mental Status: alert / awake / arousable and participated in evaluation Patient Amnestic to Procedure: Yes Nausea / Vomiting: adequately controlled Pain: adequately controlled Airway Patency, RR, SpO2: stable & adequate BP & HR: stable & adequate Hydration State: stable & adequate Anesthetic Complications: no major complications apparent and Pt Satisfied with anesthetic care
[2022-04-12] MEDS: LOSARTAN POTASSIUM 50 MG TAB PO SCH (09:23)
--- NOTE | 2022-04-12 14:16 | Hospitalist Progress Note ---
Date of Service April 12, 2022 Assessment & Plan (1) Atrial fibrillation with rapid ventricular response: Plan: Afib RVR H/O PVCs -CXR:No acute processes of the chest. -Normal TSH -ECHO: EF 60 to 65%. Mild consult LVH. Left atrium is moderately dilated. Trace mitral regurgitation. Mild tricuspid regurgitation. Continue IV heparin>>Transitioned to Xarelto Continue Metoprolol 5o mg twice daily Appreciate cardiology input Advised to follow up with Cardiology upon discharge Alcohol abuse Video Conference Specialist to minimize alcohol use Monitor for withdrawal Continue thiamine, folic acid Hypertension On Losartan Also on Metoprolol Past tobacco abuse Denies current use Morbid Obesity BMI: 55.8 Advised Outpatient Sleep Study DVT Px: Xarelto Code Status Full code Admission and Anticipated Discharge Date Admission Date: April 11, 2022 Subjective Patient is seen and examined at bedside Had Cardioversion earlier today States feeling tired Palpitations resolved Denies any chest pain, shortness of breath, dizziness, nausea, abdominal pain Review of Systems Review of Systems: All systems reviewed & are unremarkable except as noted in Subjective Physical Exam Physical Exam: Physical Exam: Vitals signs as noted above General Appearance:Morbidly Obese, no apparent distress Head: normocephalic, Atraumatic Eyes: normal inspection, EOMI Neck: supple, Trachea midline Respiratory/Chest: Normal breath sounds, CTA, No accessory muscle use Cardiovascular: S1, S2, No murmur Abdomen/GI:Soft, Non tender, Bowel sounds present Extremities/Musculoskeletal:normal inspection, 1+ edema Neurologic/Psych:AAOX3, grossly no focal neurological deficits Skin: normal color, warm Results & Data Results & Data ([facility]) Vital Signs (Past 12 Hours) Vital Signs Temp Pulse Pulse Resp BP BP Pulse Ox 04/12/22 10:36 36.4 C L 71 19 86/55 L 97 04/12/22 08:58 60 04/12/22 08:57 36.7 C 82 18 105/70 98 04/12/22 08:26 62 18 94/69 L 95 04/12/22 08:11 60 18 91/67 L 98 04/12/22 07:15 124 H 18 135/83 98 04/12/22 07:13 123 H 04/12/22 03:21 36.4 C L 116 H 18 108/66 95 O2 Del Method 04/12/22 10:36 Room Air 04/12/22 08:58 04/12/22 08:57 Room Air 04/12/22 08:26 Room Air 04/12/22 08:11 Room Air 04/12/22 07:15 Room Air 04/12/22 07:13 04/12/22 03:21 Room Air Laboratory Results Short CBC 04/12/22 Range/Units 05:29 WBC 5.58 (4.8-10.8) K/ul Hgb 12.7 (12.0-16.0) g/dl Hct 37.0 (34.1-44.9) % Plt Count 187 (130-400) K/uL BMP 04/12/22 05:29 Sodium 140 Potassium 4.1 Chloride 109 H Carbon Dioxide 26 BUN 17 Creatinine 1.01 Glucose 108 H Calcium 8.6
--- NOTE | 2022-04-12 15:38 | Cardiology Progress Note ---
Date of Service April 12, 2022 Assessment & Plan (1) Atrial fibrillation with rapid ventricular response: (2) Hypertension: (3) Obesity: (4) Alcohol use: Plan Patient underwent synchronized cardioversion this morning with conversion to sinus rhythm Plan: Ambulate in hallway Discharge to home on reduced dose of losartan 25 mg/day, metoprolol tartrate 50 mg twice per day, anticoagulation with Xarelto 20 mg p.o. daily Patient establish cardiology and PCP appointment on arrival home Admission and Anticipated Discharge Date Admission Date: April 11, 2022 Subjective Patient seen and examined after synchronized electrical cardioversion. Procedure went well with single 150 J synchronized shock with conversion to sinus rhythm. Transient hypotension postoperatively after sedation otherwise no acute complaints Review of Systems Review of Systems: All systems reviewed & are unremarkable except as noted in Subjective Physical Exam Constitutional: well developed and well nourished Eyes: PERRL, conjunctivae normal, anicteric sclerae ENMT: external ear and nose normal, oropharynx normal Neck: trachea midline, no thyromegaly Respiratory: normal respiratory effort, lungs clear to auscultation Cardiovascular: RRR, no murmur, no edema Vessels: no JVD Extremities: no edema Results & Data ([facility]) Vital Signs (Past 12 Hours) Vital Signs Temp Pulse Pulse Resp BP BP Pulse Ox 04/12/22 10:36 36.4 C L 71 19 86/55 L 97 04/12/22 08:58 60 04/12/22 08:57 36.7 C 82 18 105/70 98 04/12/22 08:26 62 18 94/69 L 95 04/12/22 08:11 60 18 91/67 L 98 04/12/22 07:15 124 H 18 135/83 98 04/12/22 07:13 123 H O2 Del Method 04/12/22 10:36 Room Air 04/12/22 08:58 04/12/22 08:57 Room Air 04/12/22 08:26 Room Air 04/12/22 08:11 Room Air 04/12/22 07:15 Room Air 04/12/22 07:13
--- NOTE | 2022-04-12 16:32 | Communication Note ---
Date of Service: April 12, 2022 By CMS guidelines, a determination that the admission or continued stay is not medically necessary has been made by a member of the UR committee and sheyla pascual for this hospital stay, therefore a Code 44 will be completed and the Inpatient admission will be changed to outpatient.
--- NOTE | 2022-04-12 16:33 | Discharge Summary ---
Date of Service April 12, 2022 Admission HPI Per Admitting Provider History obtained from patient, family, and records. Patient maintains residences in [place], [place] and [place]. Medical history significant for hypertension, episodic PVCs, past tobacco abuse. Last year, patient noted palpitations. Found to have PVCs on medical resident work-up from [place]. Patient prescribed metoprolol to be taken as needed for bothersome palpitations. Patient in town over the weekend. Admits to alcohol binging from time to time. Yesterday afternoon, patient experienced palpitations a little more severe and protracted than usual. No response to 2 tablets of metoprolol. Patient also took a baby aspirin. No actual chest pain, SOB or stress. Patient brought to ER for evaluation. Patient noted to be in rapid A. fib at the ER. IV Cardizem bolus administered at the ER. 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 palpebral conjunctivae, no ptosis, moist buccal mucosa NECK : Supple, short neck, no tenderness CHEST : CTA, no tenderness HEART : Irregular, no obvious murmurs ABDOMEN: distention, nontender EXTREMITIES : Minimal LE swelling/tenderness, no other conspicuous deformities noted NEUROLOGIC : Coherent, no facial asymmetry, no other gross focality Principal Diagnosis Atrial fibrillation with rapid ventricular response Discharge Data Allergies Allergy/AdvReac Type Severity Reaction Status Date / Time bacitracin Allergy Rash Verified 04/10/22 23:55 [From Neosporin ([id number])] neomycin Allergy Rash Verified 04/10/22 23:55 [From Neosporin ([id number])] polymyxin B Allergy Rash Verified 04/10/22 23:55 [From Neosporin ([id number])] Consultations 04/10/22 23:41 ED Decision to Admit Stat 04/11/22 01:26 Consult Cardiology Routine 04/11/22 11:20 Consult Anesthesiology Routine Procedures Performed Operation Date: 04/12/22 07:30 Actual Procedures p Cardioversion - Mahtew Rivas MD Ordered Studies Laboratory Results WBC 5.58 K/ul (4.8-10.8) 04/12/22 05:29 RBC 3.96 M/uL (3.93-5.22) 04/12/22 05:29 Hgb 12.7 g/dl (12.0-16.0) 04/12/22 05:29 Hct 37.0 % (34.1-44.9) 04/12/22 05:29 MCV 93.4 fL (80.0-100.0) 04/12/22 05:29 MCH 32.1 pg (25.0-34.0) 04/12/22 05:29 MCHC 34.3 g/dL (32.0-36.0) 04/12/22 05:29 RDW Std Deviation 45.6 fL (36.4-46.3) 04/12/22 05:29 RDW Coeff of Jian 13.2 % (11.5-14.5) 04/12/22 05:29 Plt Count 187 K/uL (130-400) 04/12/22 05:29 MPV 10.7 fL (9.4-12.3) 04/12/22 05:29 Immature Gran % (Auto) 0.4 % 04/11/22 07:12 Neut % (Auto) 44.5 % 04/11/22 07:12 Lymph % (Auto) 43.9 % 04/11/22 07:12 [place] % (Auto) 7.0 % 04/11/22 07:12 Eos % (Auto) 3.8 % 04/11/22 07:12 Baso % (Auto) 0.4 % 04/11/22 07:12 Neut # (Auto) 2.36 K/uL (1.4-6.5) 04/11/22 07:12 Lymph # (Auto) 2.32 K/uL (1.2-3.4) 04/11/22 07:12 [place] # (Auto) 0.37 K/uL (0.24-0.82) 04/11/22 07:12 Eos # (Auto) 0.20 K/uL (0-0.50) 04/11/22 07:12 Baso # (Auto) 0.02 K/uL (0-0.2) 04/11/22 07:12 Immature Gran # (Auto) 0.02 K/uL (0.00-0.02) 04/11/22 07:12 PT 10.3 Seconds (9.0-12.0) 04/10/22 22:42 INR 1.0 (0.9-1.1) 04/10/22 22:42 APTT 56.7 Seconds (21.0-31.0) H* 04/12/22 05:29 PTT Ratio 2.1 04/12/22 05:29 Sodium 140 mmol/L (136-145) 04/12/22 05:29 Potassium 4.1 mmol/L (3.5-5.1) 04/12/22 05:29 Chloride 109 mmol/L (98-107) H 04/12/22 05:29 Carbon Dioxide 26 mmol/L (21-32) 04/12/22 05:29 Anion Gap 5 (3-11) 04/12/22 05:29 BUN 17 mg/dl (6-23) 04/12/22 05:29 Creatinine 1.01 mg/dl (0.6-1.2) 04/12/22 05:29 Est Cr Clr Drug Dosing 82.1 ml/min 04/12/22 05:29 Est GFR ( Amer) 67.2 ml/min 04/12/22 05:29 Est GFR (Non-Af Amer) 58.0 ml/min 04/12/22 05:29 BUN/Creatinine Ratio 16.8 (10-20) 04/12/22 05:29 Glucose 108 mg/dl (70-99(Fasting)) H 04/12/22 05:29 Estimat Average Glucose 105 mg/dl 04/11/22 07:12 Hemoglobin A1c 5.3 % (4.5-5.6) 04/11/22 07:12 Calcium 8.6 mg/dl (8.5-10.1) 04/12/22 05:29 Magnesium 2.0 mg/dl (1.7-2.4) 04/12/22 05:29 Total Bilirubin 0.4 mg/dl (0.2-1.0) 04/10/22 22:42 AST 16 U/L (13-39) 04/10/22 22:42 ALT 15 U/L (7-52) 04/10/22 22:42 Alkaline Phosphatase 58 U/L (34-104) 04/10/22 22:42 Troponin I High Sens 5.8 pg/ml (0-14) 04/10/22 22:42 Total Protein 7.1 gm/dl (6.0-8.3) 04/10/22 22:42 Albumin 4.2 gm/dl (3.4-5.0) 04/10/22 22:42 Globulin 2.9 gm/dl (2.5-4.0) 04/10/22 22:42 Albumin/Globulin Ratio 1.4 (0.9-2) 04/10/22 22:42 TSH 1.714 uIu/ml (0.300-4.500) 04/10/22 22:42 Hepatitis C Ab (EIA) NON-REACTIVE (NON-REACTIVE) 04/11/22 07:12 Hep C Ab Signal/Cutoff 0.04 (<1.00) 04/11/22 07:12 SARS-CoV-2, RNA, NAAT NEGATIVE (NEGATIVE) 04/10/22 23:02 Impressions Chest X-Ray 04/10/22 22:30 XR chest 1V portable HISTORY: 66 years-old Female Chest Pain . Acute chest pain COMPARISON: None TECHNIQUE: AP view of the chest FINDINGS: Cardiomediastinal and hilar silhouettes are within normal limits. No pneumothorax, pleural effusion or overt pulmonary edema. Mild subsegmental bibasilar densities favoring atelectasis. Degenerative changes of the shoulders and spine. Degenerative loose bodies within the left subscapularis recess. IMPRESSION: No acute processes of the chest. ACT 112: Negative or not required by law. The above report was generated using voice recognition software. It may contain grammatical, syntax or spelling errors. Electronically signed by: Jatinder Calles M.D. 04/11/2022 7:19 AM Hospital Course (1) Atrial fibrillation with rapid ventricular response: Afib RVR H/O PVCs -CXR:No acute processes of the chest. -Normal TSH -ECHO: EF 60 to 65%. Mild consult LVH. Left atrium is moderately dilated. Trace mitral regurgitation. Mild tricuspid regurgitation. 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 Monitor for withdrawal Continue thiamine, folic acid Hypertension On Losartan Also on Metoprolol Past tobacco abuse Denies current use Morbid Obesity BMI: 55.8 Advised Outpatient Sleep Study DVT Px: Xarelto Code Status Full code Total Time Total Time Spent Total Time Spent (In Minutes): 38 minutes Discharge Plan Discharge Items Patient Disposition: Home - Self-Care Reason For Visit: AF Discharge Diagnosis: Atrial fibrillation with rapid ventricular response Condition on Discharge: Good Activity: Per Instructions section Sexual Activity: Wait until after follow-up appointment Non-emergency contact: Primary Care Provider and Route Supervisor Call non-emergency contact if: you have any medication questions, your symptoms worsen, your pain is concerning for you and you have a fever Follow-up/Referrals: PCP,NO [Primary Care Provider] - Diet: Heart Healthy Addtl Attending Provider Instructions: Follow-up with your primary care physician in 1 week as advised Follow-up with your medical resident in 1 to 2 weeks - Start taking metoprolol tartrate 50 mg twice a day -Your losartan dose is decreased to 25 mg daily as your blood pressure is relatively low -Start taking Xarelto 20 mg daily --Consider sleep study as outpatient as recommended. --Minimize alcohol use as advised. Seek immediate medical attention if your symptoms reoccur or worsen Please take all medications as instructed on discharge list below. Please call if you have any questions or problems. You can reach a [facility] hospitalist on duty at [facility] 24 hours a day by calling [phone] Pending Studies at Discharge: No Stand-Alone Forms: My [facility], Smoking Cessation Medications and DC Order Prescriptions: New Xarelto 20 mg Tablet 20 mg PO DAILY Qty: 30 1RF thiamine HCl (vitamin B1) 100 mg Tablet 100 mg PO QAM Qty: 30 0RF folic acid 1 mg Tablet 1 mg PO QAM Qty: 30 0RF metoprolol tartrate 50 mg Tablet 50 mg PO BID Qty: 60 1RF losartan 25 mg Tablet 25 mg PO DAILY Qty: 30 0RF Continued gabapentin 600 mg tablet 1,200 mg PO BID alprazolam 0.5 mg tablet 0.5 mg PO DAILY PRN (Reason: Anxiety) vitamin B complex [B Complete] Tablet 1 tab PO DAILY melatonin 5 mg Tablet 5 mg PO HS PRN (Reason: Sleep) cholecalciferol (vitamin D3) [Vitamin D3] 50 mcg (2,000 unit) Tablet 2,000 unit PO DAILY omega 6-dbb-pxp-fish oil [Fish Oil] 1,200 (144-216) mg Capsule 1,200 cap PO DAILY Discontinued losartan 50 mg tablet 50 mg PO DAILY Discharge Orders: Discharge Order (Routine); Ordered 04/12/22 Ordered By: Mega Emery/Other Patient Handouts: AFib Dc, Chemical Cardioversion, Having Electrical Cardioversion Admission Data Admit Date/Time: 04/11/22 00:30 Attending Provider: Mega Walters Admit Provider: Abel Larsen Primary Care Provider: PCP,NO Other Providers: Raf Gusman ; Mode Rice ; Mathew Rivas ; Beltran Hagan ; Eleazar Johnson ; Chandan Marquez ; Christiane Holbrook ; Milena Ellis ; Alexia Velázquez ; Leandro Henriquez ; Abel Larsen ; Latricia Cui ; Haleigh Malcolm ; Silvia Lanza ; Laure Felder ; Geovanna Anderson ; Rad Díaz ; Giancarlo Otero ; Eleazar Dupont ; Luis A Sequeira ; Winter Sequeira ; Everton Culver ; Marissa Cobb ; Anthony Weldon ; Devon Barnes ; Johnson Saini ; Fabiano Moreno ; Jesika Maria ; Chandan Kothari ; Nat Thompson ; Emilee Kothari ; Jesus Walton ; Alexia Martinez ; Junito Turk ; Christiane Hodge ; Pam Wagn ; Cinthya Gong ; Raf Isaac ; Alda Nassar ; Pao Milner ; Kinsey Vasquez ; Rossi Xavier ; Abel Xavier V ; Miah Tavarez ; Haleigh Dow ; Maldonado Lucio ; Leda Castanon ; Abel Shelley ; Daniel Maria ; Syed Millan ; Mayelin Ardon ; Phyllis Dupont ; Abel Beasley ; Mode Maher ; Ck Moreno ; Silvia Jimenez ; Angel Lozada ; Caryl Ma ; Yuval Renteria ; Angel Lujan ; Rad Mcnamara Jr ; Carrie Shane ; Yoselin Box ; Heena Newton ; Raf Mays ; Laure Wiggins ; Luis A Grey ; Arnulfo Harvey I. ; Kasey Worthington
--- NOTE | 2022-04-12 18:32 | Communication Note ---
Date of Service: April 12, 2022 Code 44 attestation: 66-year-old female with atrial fibrillation with RVR was cardioverted with a supervisor food checkers and cashiers and the patient was discharged home by the attending physician following cardioversion with stable medical condition, By CMS guidelines, a determination that the admission or continued stay is not medically necessary has been made by a member of the UR committee and a physician for this hospital stay, therefore a Code 44 will be completed and the Inpatient admission will be changed to outpatient. DR Nella Anguiano Member UR Committee
[2022-04-12] MEDS ORDERED: METOPROLOL TARTRATE 50 MG TAB PO SCH (21:00)
--- NOTE | 2022-04-13 06:18 | Electrocardiogram Report ---
Test Reason : Blood Pressure : / mmHG Vent. Rate : 118 BPM Atrial Rate : 119 BPM P-R Int : 000 ms QRS Dur : 090 ms QT Int : 330 ms P-R-T Axes : 000 032 004 degrees QTc Int : 462 ms Atrial fibrillation with rapid ventricular response Abnormal ECG When compared with ECG of 10-APR-2022 22:39, No significant change was found Confirmed by Abhishek Mendenhall ([id number]) on 04/13/2022 6:18:04 AM Referred By: REFERRED SELF Confirmed By:Abhishek Mendenhall
--- NOTE | 2022-04-13 06:52 | Electrocardiogram Report ---
Test Reason : Blood Pressure : / mmHG Vent. Rate : 062 BPM Atrial Rate : 062 BPM P-R Int : 162 ms QRS Dur : 092 ms QT Int : 412 ms P-R-T Axes : 048 035 019 degrees QTc Int : 418 ms Normal sinus rhythm Normal ECG When compared with ECG of 12-APR-2022 05:53, Sinus rhythm has replaced Atrial fibrillation Vent. rate has decreased BY 56 BPM Confirmed by Abhishek Mendenhall ([id number]) on 04/13/2022 6:51:45 AM Referred By: REFERRED SELF Confirmed By:Abhishek Mendenhall
[2022-04-13] MEDS ORDERED: LOSARTAN POTASSIUM 25 MG TAB PO SCH (09:00)
== END 2022-04-12 18:40 | disposition home or self-care (01) ==
LOC: ED 22:28 → INTOOBSV 04-11 00:30 → 2S 04-11 00:30 → SUATTDRO 04-11 00:30 → 2S 04-11 01:09

== ENCOUNTER 2023-08-09 00:20 | Observation (INO) ==
[2023-08-09] MEDS: dilTIAZem HCl 5 MG/ML 5 ML VIAL IV ONE (00:54)
[2023-08-09] MEDS: dilTIAZem HCl 5 MG/ML 5 ML VIAL IV STA (00:54)
[2023-08-09 01:03] LABS: Basophils # (auto) 0.03 K/uL (0.00-0.20); Basophils % (auto) 0.5 %; Eosinophils # (auto) 0.19 K/uL (0.00-0.50); Eosinophils % (auto) 3.2 %; Hematocrit (blood only) 42.9 % (37.0-47.0); Hemoglobin 14.2 g/dl (12.0-16.0); Immature Granulocytes # (auto) 0.03 K/uL (0.01-0.20); Immature Granulocytes % (auto) 0.5 %; Mean Corpuscular Hemoglobin 31.3 pg (25.0-34.0); Mean Corpuscular Hgb Conc 33.1 g/dL (32.0-36.0); Mean Corpuscular Volume 94.7 fL (80.0-100.0); Mean Platelet Volume 10.7 fL (9.4-12.4); Monocytes # (auto) 0.46 K/uL (0.11-0.59); Monocytes % (auto) 7.8 %; Neutrophils # (auto) 2.88 K/uL (1.40-6.50); Platelet Count 251 K/uL (130-400); RDW Coefficient of Variation 12.8 % (11.5-14.5); RDW Standard Deviation 44.5 fL (36.4-46.3); Red Blood Count 4.53 M/uL (4.20-5.40); White Blood Count 5.89 K/ul (4.8-10.8)
--- NOTE | 2023-08-09 01:10 | Emergency Department Note ---
History of Present Illness General Chief complaint: Tachycardia Stated complaint: A-FIB Time Seen by Provider: 08/09/23 00:50 History of Present Illness This 67-year-old female on Xarelto and metoprolol for A-fib presents the ER complaining of tachycardia. She had a few alcoholic beverages tonight. Patient states she feels like her heart is racing. Patient denies fever, chills, cough, congestion, vomiting, diarrhea, flulike illness. She is visiting from [place]. 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 Home Medications Medication Instructions Recorded Confirmed Type alprazolam 0.5 mg tablet 0.25 mg PO DAILY PRN Anxiety 04/10/22 08/09/23 History cholecalciferol (vitamin D3) 50 2,000 unit PO DAILY 04/10/22 08/09/23 History mcg (2,000 unit) tablet (Vitamin D3) gabapentin 600 mg tablet 1,200 mg PO BID 04/10/22 08/09/23 History melatonin 5 mg tablet 5 mg PO HS PRN Sleep 04/10/22 08/09/23 History omega 4-llz-dkq-fish oil 1,200 mg 1,200 cap PO DAILY 04/10/22 08/09/23 History (144 mg-216 mg) capsule (Fish Oil) vitamin B complex 1 tab PO DAILY 04/10/22 08/09/23 History rivaroxaban 20 mg tablet (Xarelto) 20 mg PO DAILY #30 tabs 04/12/22 08/09/23 Rx losartan 50 mg tablet 50 mg PO DAILY 08/09/23 08/09/23 History lysine 500 mg tablet 500 mg PO DAILY 08/09/23 08/09/23 History metoprolol succinate 25 mg 25 mg PO DAILY 08/09/23 08/09/23 History tablet,extended release 24 hr multivitamin with minerals-folic 1 tab PO DAILY 08/09/23 08/09/23 History acid 80 mcg chewable tablet (Centrum Adult 50 Plus) Allergies Allergy/AdvReac Type Severity Reaction Status Date / Time adhesive Allergy Intermediate RASH/HIVES Verified 08/09/23 01:30 bacitracin Allergy Intermediate Rash Verified 08/09/23 01:30 [From Neosporin ([id number])] neomycin Allergy Intermediate Rash Verified 08/09/23 01:30 [From Neosporin ([id number])] polymyxin B Allergy Intermediate Rash Verified 08/09/23 01:30 [From Neosporin ([id number])] Past Med/Surg History Medical History High blood pressure Surgical History Hx of cholecystectomy Social History Smoking Status: Never smoker Hx Alcohol Use: Yes Alcohol type: wine Hx Substance Use: No Preferred Language: Faroese Communication Ability: Effective Molder Floor Required: No Beliefs That Will Affect Care: Buddhism Current Living Situation: Spouse Feels Safe at Home: Yes Assistive Devices: None Review of Systems A total of 10 systems reviewed and were otherwise negative Physical Exam Vital Signs Vital Signs - 24 hr 08/09/23 00:24 08/09/23 00:58 08/09/23 00:59 Temperature 36.6 C Temperature Source Temporal Artery Scan Pulse Rate 117 H 86 Pulse Rate [Radial] 140 H Pulse Rhythm [Radial] Pulse Strength [Radial] Respiratory Rate 20 17 Respiratory Effort / Characteristics Non-Labored Spontaneous Non-Labored Spontaneous Respiratory Depth Normal Normal Respiratory Pattern Regular Regular Blood Pressure 156/135 H Blood Pressure [Left Arm] 117/75 Blood Pressure Mean 142 Blood Pressure Mean [Left Arm] 89 Blood Pressure Position Sitting Pulse Oximetry 97 94 Oxygen Delivery Method Room Air Room Air Sepsis Recent Fever Within 48 Hours No Sepsis New/Unexplained Change in Mental Status No Sepsis Action Taken by Nursing No Action Required 08/09/23 00:59 08/09/23 01:00 Temperature Temperature Source Pulse Rate Pulse Rate [Radial] 87 Pulse Rhythm [Radial] Irregular Pulse Strength [Radial] Normal Respiratory Rate 15 Respiratory Effort / Characteristics Non-Labored Spontaneous Respiratory Depth Normal Respiratory Pattern Regular Blood Pressure Blood Pressure [Left Arm] 117/77 Blood Pressure Mean Blood Pressure Mean [Left Arm] 90 Blood Pressure Position Pulse Oximetry 94 94 Oxygen Delivery Method Room Air Room Air Sepsis Recent Fever Within 48 Hours Sepsis New/Unexplained Change in Mental Status Sepsis Action Taken by Nursing VITALS: Vitals are noted on the nurse's note and reviewed by myself. Vital signs tachycardia GENERAL: Pleasant female, in no acute distress, nondiaphoretic, well-developed well-nourished. SKIN: Capillary reflex less than 2 seconds. HEENT: Normocephalic. PERRLA. EOMI. Nares patent. Mucous membranes moist. Neck is supple without nuchal rigidity. HEART: Tachycardic irregularly irregular LUNGS: Clear to auscultation bilaterally without wheezes, rales or rhonchi. No retractions or accessory muscle use. ABDOMEN: Positive bowel sounds x 4. Normal tympanic percussion. Soft, nontender, without masses or organomegaly. Espinoza sign negative. No guarding or rebound tenderness. no CVA tenderness MUSCULOSKELETAL: No gross musculoskeletal defects. NEURO: Patient was alert and oriented to person place and time. No focal neurological deficits. Course Administered Medications Diltiazem HCl 125 mg/ Dextrose 125 mls @ 5 mls/hr IV .Q24H [facility]; Protocol Stop: 09/08/23 01:59 Last Admin: 08/09/23 02:06 Dose: 5 mg/hr, 5 mls/hr Documented By: MARLY Co-signed By: ARSH Discontinued Medications Diltiazem HCl (Diltiazem Hcl 5 Mg/Ml 5 Ml Vial) Confirm Administered Dose 25 mg IV .STK-MED ONE Stop: 08/09/23 00:52 Last Admin: 08/09/23 00:54 Dose: Not Given Documented By: MARLY Diltiazem HCl (Diltiazem Hcl 5 Mg/Ml 5 Ml Vial) 20 mg IV NOW STA Stop: 08/09/23 00:52 Last Admin: 08/09/23 00:54 Dose: 20 mg Documented By: MARLY Co-signed By: ANH Sodium Chloride (Nss) 1,000 mls @ 999 mls/hr IV .Q1H1M ONE Stop: 08/09/23 02:04 Last Infusion: 08/09/23 02:35 Dose: Infused Documented By: Admin: 08/09/23 01:42 Dose: 999 mls/hr Documented By: MARLY Lorazepam (Lorazepam 1 Mg/1 Ml Syr Ed Inj Use) 1 mg IV ONE STA Stop: 08/09/23 02:16 Last Admin: 08/09/23 02:32 Dose: 1 mg Documented By: MARLY Critical Care Time Critical Care Time: Yes Total Critical Care Time: 35 I have personally spent 35 minutes of critical care time in the direct management of this patient. This includes bedside care, interpretation of diagnostic studies, and testing, discussion with consultants, patient, and family members, and other required patient management activities. This 35 minutes is in excess of all separately billable procedures. Medical Decision Making Medical Records Attestation: I reviewed the patient's medical records. Home Medications Current Medication List: was personally reviewed by me Laboratory Data Attestation: I reviewed the patient's lab results. 08/09/23 00:40 08/09/23 00:40 Lab Results 08/09/23 08/09/23 Range/Units 00:40 01:41 WBC 5.89 (4.8-10.8) K/ul RBC 4.53 (4.20-5.40) M/uL Hgb 14.2 (12.0-16.0) g/dl Hct 42.9 (37.0-47.0) % MCV 94.7 (80.0-100.0) fL MCH 31.3 (25.0-34.0) pg MCHC 33.1 (32.0-36.0) g/dL RDW Std Deviation 44.5 (36.4-46.3) fL RDW Coeff of Jian 12.8 (11.5-14.5) % Plt Count 251 (130-400) K/uL MPV 10.7 (9.4-12.4) fL Immature Gran % (Auto) 0.5 % Neut % (Auto) 49.0 % Lymph % (Auto) 39.0 % [place]cl[place] % (Auto) 7.8 % Eos % (Auto) 3.2 % Baso % (Auto) 0.5 % Neut # (Auto) 2.88 (1.40-6.50) K/uL Lymph # (Auto) 2.30 (1.20-3.40) K/uL [place] # (Auto) 0.46 (0.11-0.59) K/uL Eos # (Auto) 0.19 (0.00-0.50) K/uL Baso # (Auto) 0.03 (0.00-0.20) K/uL Immature Gran # (Auto) 0.03 (0.01-0.20) K/uL PT 10.5 (9.0-12.0) Seconds INR 1.0 (0.9-1.1) APTT 30 (21-31) Seconds PTT Ratio 1.1 Sodium 140 (136-145) mmol/L Potassium 4.1 (3.5-5.1) mmol/L Chloride 108 H (98-107) mmol/L Carbon Dioxide 24 (21-32) mmol/L Anion Gap 8 (3-11) BUN 20 (6-23) mg/dl Creatinine 0.97 (0.6-1.2) mg/dl Est Cr Clr Drug Dosing 92.6 ml/min Est GFR ( Amer) 70.0 ml/min Est GFR (Non-Af Amer) 60.4 ml/min BUN/Creatinine Ratio 20.6 H (10-20) Glucose 110 H (70-99(Fasting)) mg/dl Calcium 9.8 (8.6-10.3) mg/dl Magnesium 1.9 (1.7-2.4) mg/dl Total Bilirubin 0.2 (0.2-1.0) mg/dl AST 13 (13-39) U/L ALT 14 (7-52) U/L Alkaline Phosphatase 65 (34-104) U/L Troponin I High Sens 9.5 (0-14) pg/ml Total Protein 7.5 (6.0-8.3) gm/dl Albumin 4.3 (3.4-5.0) gm/dl Globulin 3.2 (2.5-4.0) gm/dl Albumin/Globulin Ratio 1.3 (0.9-2) TSH 2.633 (0.300-4.500) uIu/ml Ethyl Alcohol mg/dL < 10.0 (<10.0) mg/dl Imaging Data Attestation: I personally reviewed and interpreted this imaging study as follows: MDM Narrative Prior records/ancillary studies reviewed. Triage Nursing notes reviewed. Additional history obtained from family. The patient's history was concerning for palpitations. Differential diagnosis: Etiologies such as premature contractions, electrolyte abnormality, cardiac dysrhythmia, thyroid dysfunction, pulmonary embolism, infection, gastrointestinal, as well as others were entertained. Physical examination: Benign as above. ER treatment provided: Cardizem IV, IV fluids On reassessment the patient felt better. Diagnostic interpretation by me: An order was placed for continuous cardiac monitoring. The monitor shows a rate of 60-1 80 with a A-fib rhythm per my interpretation. The electrocardiogram was ordered for palpitaions ECG: Irregularly irregular with ventricular rate of 141. Impression A-fib with RVR independently interpreted by myself The labs Independently Interpreted by myself revealed negative troponin. Euthyroid Imaging studies: Chest x-ray with no acute consolidation, pneumothorax or free air per my independent interpretation HEART SCORE: Hx: high/mod/low suspicion: 0 ECG: ST depression/nonspecific changes/normal: 0 Age: Greater than 65/45-64/less than 45: 2 Risk factors: (Hypertension, hyperlipidemia, diabetes, coronary disease, tobacco use, cocaine use): 2 Troponin: Greater than 2 times normal limits/1-2 times normal limits/normal: 0 Total: 4 Consultation: A consultation was placed with the hospitalist. The case was discussed and diagnostics were reviewed. The patient was evaluated in the ER for further treatment. This appears to be consistent with A-fib with RVR. Patient was given Cardizem and she was still tachycardic so was placed on a Cardizem drip. Initial troponin was negative. She is on Xarelto. Medicine was consulted and case was discussed. She will be evaluated by the medical service for further evaluation and treatment. By the evaluation outlined above emergent etiologies such as electrolyte abnormality, thyroid dysfunction, pulmonary embolism, infection, as well as others were deemed relatively unlikely. The pt informed about the findings as listed above. All questions were answered and pleased with the treatment. The chart was completed utilizing [employer] Speech voice recognition software. Grammatical errors, random word insertions, pronoun errors, and incomplete sentences are an occassional consequence of this system due to software limitations, ambient noise, and hardware issues. Any formal questions or concerns about the content, text, or information contained within the body of this dictation should be directly addressed to the physician distribution center assistant for clarification. Impression & Plan Atrial fibrillation with RVR Discharge Plan Visit Data Chief Complaint: Tachycardia Stated Complaint: A-FIB ED Provider: Ana Noriega ED Midlevel Provider: Brooklynn Rapp Discharge Problem: Atrial fibrillation with RVR Patient Disposition: Admitted As Inpatient Condition: Good Forms Stand Alone Forms: [employer] Prescriptions Prescriptions: No Action gabapentin 600 mg tablet 1,200 mg PO BID alprazolam 0.5 mg tablet 0.25 mg PO DAILY PRN (Reason: Anxiety) vitamin B complex Tablet 1 tab PO DAILY melatonin 5 mg Tablet 5 mg PO HS PRN (Reason: Sleep) cholecalciferol (vitamin D3) [Vitamin D3] 50 mcg (2,000 unit) Tablet 2,000 unit PO DAILY omega 6-ujx-ohl-fish oil [Fish Oil] 1,200 (144-216) mg Capsule 1,200 cap PO DAILY Xarelto 20 mg Tablet 20 mg PO DAILY Qty: 30 1RF losartan 50 mg tablet 50 mg PO DAILY metoprolol succinate 25 mg tablet extended release 24 hr 25 mg PO DAILY lysine 500 mg Tablet 500 mg PO DAILY Centrum Adult 50 Plus 80 mcg Tablet,Chewable 1 tab PO DAILY Referrals Referrals: PCP,NO [Physician] -
[2023-08-09 01:18] LABS: Albumin Globulin Ratio 1.3 (0.9-2); Albumin Level 4.3 gm/dl (3.4-5.0); BUN Creatinine Ratio 20.6 (10-20); Bilirubin,Total 0.2 mg/dl (0.2-1.0); Calcium 9.8 mg/dl (8.6-10.3); Creatinine Clr Calc Pharmacy 92.6 ml/min; Est GFR (Non-African American) 60.4 ml/min; Globulin 3.2 gm/dl (2.5-4.0); Potassium 4.1 mmol/L (3.5-5.1); Total Protein 7.5 gm/dl (6.0-8.3)
[2023-08-09 01:27] LABS: Troponin I High Sensitivity 9.5 pg/ml (0-14)
[2023-08-09 01:31] LABS: Partial Thromboplastin Ratio 1.1; Partial Thromboplastin Time 30 Seconds (21-31); Prothrombin Time 10.5 Seconds (9.0-12.0)
[2023-08-09] MEDS: SODIUM CHLORIDE 0.9% 1,000 ML IV ONE (01:42)
[2023-08-09] MEDS ORDERED: STAT IV Infusion **Titration per Protocol STA (01:54)
[2023-08-09] MEDS: dilTIAZem HCL 125 MG in DEXTROSE 5% 100 ML IV SCH (02:06)
[2023-08-09 02:14] LABS: Magnesium 1.9 mg/dl (1.7-2.4)
[2023-08-09 02:30] LABS: Thyroid Stimulating Hormone 2.633 uIu/ml (0.300-4.500)
[2023-08-09] MEDS: LORazepam 1 MG/1 ML SYR ED Inj Use IV STA (02:32)
[2023-08-09] MEDS ORDERED: ACETAMINOPHEN 325 MG TAB PO PRN (03:43)
[2023-08-09] MEDS ORDERED: NITROGLYCERIN SL 0.4 MG/TAB TAB SL PRN (03:43)
[2023-08-09] MEDS ORDERED: POLYETHYLENE (MIRALAX) 17 GM PACK PO PRN (03:43)
[2023-08-09] MEDS ORDERED: ALPRAZolam 0.5 MG TABLET PO PRN (03:51)
[2023-08-09] MEDS ORDERED: MELATONIN 3 MG TAB PO PRN (03:53)
--- NOTE | 2023-08-09 04:10 | Emergency Department Note ---
ED Visit Note I was consulted by the Advanced Practice Provider. I personally approved the management plan and disposition. -History/Physical/PMHx -MDM .
--- NOTE | 2023-08-09 04:13 | History & Physical Report ---
Date of Service August 09, 2023 Assessment & Plan (1) Atrial fibrillation with RVR: Plan: 67-year-old female with past medical history significant for hypertension, PVCs ,A-fib, past tobacco abuse comes with palpitations and found to be in rapid A- fib. Patient is from [facility]. She also has a house in [place]. 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 She is visiting [place]. She drinks 2 glasses of alcohol every day. She drank 1 glass of alcohol outside with her friends. She came home and drank 1 glass of wine. States she started not feeling well. [place] palpitations and came here. No dizziness. No headache. No blurred visions. No runny nose or sore throat. No cough. No fevers. No chest pain or shortness of breath no nausea. No abdominal pain. Normal bowel and bladder movements. Patient was here in March 2022 with rapid A-fib. That was first time she was found to have A-fib. At that time she was s/p cardioversion. Patient states since then she was doing okay. Whenever her heart rate goes up she takes extra metoprolol. She took extra metoprolol tonight also but it was not helping so she came to the ER . Atrial fibrillation with RVR ER started on Cardizem drip which will be continued Continue home Xarelto Continue home metoprolol Monitoring telemetry Echocardiogram Will keep her n.p.o. Follow repeat labs Consult cardiology in a.m. for further recommendations History of hypertension On losartan and metoprolol which we will continue with holding parameters Cardizem drip Will monitor Alcoholism States drinks 2 drinks every day Says she will not go through withdrawal Will place on thiamine and folic acid and monitor closely Morbid obesity Needs counseling May need sleep study DVT prophylaxis On Xarelto Disposition Telemetry Full code History of Present Illness Chief Complaint: Rapid A-fib Primary Care Provider: Raf Coleman 67-year-old female with past medical history significant for hypertension, PVCs ,A-fib, past tobacco abuse comes with palpitations and found to be in rapid A- fib. Patient is from [facility]. She also has a house in [place]. 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 She is visiting [place]. She drinks 2 glasses of alcohol every day. She drank 1 glass of alcohol outside with her friends. She came home and drank 1 glass of wine. States she started not feeling well. [place] palpitations and came here. No dizziness. No headache. No blurred visions. No runny nose or sore throat. No cough. No fevers. No chest pain or shortness of breath no nausea. No abdominal pain. Normal bowel and bladder movements. Patient was here in March 2022 with rapid A-fib. That was first time she was found to have A-fib. At that time she was s/p cardioversion. Patient states since then she was doing okay. Whenever her heart rate goes up she takes extra metoprolol. She took extra metoprolol tonight also but it was not helping so she came to the ER . Past medical history. As mentioned above Past surgical history. Tonsillectomy adenoidectomy, cholecystectomy, knee surgeries Social history. Past tobacco use. Alcohol states drinks 2 drinks every day. Family history significant for heart disease Allergies Allergy/AdvReac Type Severity Reaction Status Date / Time adhesive Allergy Intermediate RASH/HIVES Verified 08/09/23 01:30 bacitracin Allergy Intermediate Rash Verified 08/09/23 01:30 [From Neosporin ([id number])] neomycin Allergy Intermediate Rash Verified 08/09/23 01:30 [From Neosporin ([id number])] polymyxin B Allergy Intermediate Rash Verified 08/09/23 01:30 [From Neosporin ([id number])] Home Medications Medication Instructions Recorded Confirmed Type alprazolam 0.5 mg tablet 0.25 mg PO DAILY PRN Anxiety 04/10/22 08/09/23 History cholecalciferol (vitamin D3) 50 2,000 unit PO DAILY 04/10/22 08/09/23 History mcg (2,000 unit) tablet (Vitamin D3) gabapentin 600 mg tablet 1,200 mg PO BID 04/10/22 08/09/23 History melatonin 5 mg tablet 5 mg PO HS PRN Sleep 04/10/22 08/09/23 History omega 3-wvd-zsg-fish oil 1,200 mg 1,200 cap PO DAILY 04/10/22 08/09/23 History (144 mg-216 mg) capsule (Fish Oil) vitamin B complex 1 tab PO DAILY 04/10/22 08/09/23 History rivaroxaban 20 mg tablet (Xarelto) 20 mg PO DAILY #30 tabs 10/25/22 02/21/24 Rx losartan 50 mg tablet 50 mg PO DAILY 08/09/23 08/09/23 History lysine 500 mg tablet 500 mg PO DAILY 08/09/23 08/09/23 History metoprolol succinate 25 mg 25 mg PO DAILY 08/09/23 08/09/23 History tablet,extended release 24 hr multivitamin with minerals-folic 1 tab PO DAILY 08/09/23 08/09/23 History acid 80 mcg chewable tablet (Centrum Adult 50 Plus) Past Med/Surg History Medical History High blood pressure Surgical History Hx of cholecystectomy Social History Smoking Status: Never smoker Hx Alcohol Use: Yes Alcohol type: wine Hx Substance Use: No Preferred Language: Honduran Communication Ability: Effective Learning Consultant Required: No Beliefs That Will Affect Care: None Current Living Situation: Spouse Feels Safe at Home: Yes Safety Concerns: Feels Safe At This Time Assistive Devices: None Review of Systems Review of Systems: All systems reviewed & are unremarkable except as noted in HPI & below Physical Exam Physical Exam: General- Not in distress Head- atraumatic Eyes- PERRL. ENT- oropharynx clear Neck- supple, no JVD. Lungs- clear to auscultation no wheezing or crackles Heart- irregular rhythm;tachycardia no murmur, no gallop. Abdomen- normal bowel sounds, soft, nontender, no distension. Extremities- no pretibial edema, no erythema seen Neuro- alert, oriented PERRL, no facial palsy; no dysarthria; moves extremities. Skin- warm & dry Results & Data Results & Data Vital Signs (Past 12 Hours) Vital Signs Temp Pulse Pulse Resp BP BP Pulse Ox 08/09/23 01:00 87 15 117/77 94 08/09/23 00:59 94 08/09/23 00:59 140 H 17 117/75 94 08/09/23 00:58 86 08/09/23 00:24 36.6 C 117 H 20 156/135 H 97 O2 Del Method 08/09/23 01:00 Room Air 08/09/23 00:59 Room Air 08/09/23 00:59 Room Air 08/09/23 00:58 08/09/23 00:24 Room Air Diagnostic Findings Laboratory Results WBC 5.89 K/ul (4.8-10.8) 08/09/23 00:40 RBC 4.53 M/uL (4.20-5.40) 08/09/23 00:40 Hgb 14.2 g/dl (12.0-16.0) 08/09/23 00:40 Hct 42.9 % (37.0-47.0) 08/09/23 00:40 MCV 94.7 fL (80.0-100.0) 08/09/23 00:40 MCH 31.3 pg (25.0-34.0) 08/09/23 00:40 MCHC 33.1 g/dL (32.0-36.0) 08/09/23 00:40 RDW Std Deviation 44.5 fL (36.4-46.3) 08/09/23 00:40 RDW Coeff of Jian 12.8 % (11.5-14.5) 08/09/23 00:40 Plt Count 251 K/uL (130-400) 08/09/23 00:40 MPV 10.7 fL (9.4-12.4) 08/09/23 00:40 Immature Gran % (Auto) 0.5 % 08/09/23 00:40 Neut % (Auto) 49.0 % 08/09/23 00:40 Lymph % (Auto) 39.0 % 08/09/23 00:40 [place] % (Auto) 7.8 % 08/09/23 00:40 Eos % (Auto) 3.2 % 08/09/23 00:40 Baso % (Auto) 0.5 % 08/09/23 00:40 Neut # (Auto) 2.88 K/uL (1.40-6.50) 08/09/23 00:40 Lymph # (Auto) 2.30 K/uL (1.20-3.40) 08/09/23 00:40 [place] # (Auto) 0.46 K/uL (0.11-0.59) 08/09/23 00:40 Eos # (Auto) 0.19 K/uL (0.00-0.50) 08/09/23 00:40 Baso # (Auto) 0.03 K/uL (0.00-0.20) 08/09/23 00:40 Immature Gran # (Auto) 0.03 K/uL (0.01-0.20) 08/09/23 00:40 PT 10.5 Seconds (9.0-12.0) 08/09/23 00:40 INR 1.0 (0.9-1.1) 08/09/23 00:40 APTT 30 Seconds (21-31) 08/09/23 00:40 PTT Ratio 1.1 08/09/23 00:40 Sodium 140 mmol/L (136-145) 08/09/23 00:40 Potassium 4.1 mmol/L (3.5-5.1) 08/09/23 00:40 Chloride 108 mmol/L (98-107) H 08/09/23 00:40 Carbon Dioxide 24 mmol/L (21-32) 08/09/23 00:40 Anion Gap 8 (3-11) 08/09/23 00:40 BUN 20 mg/dl (6-23) 08/09/23 00:40 Creatinine 0.97 mg/dl (0.6-1.2) 08/09/23 00:40 Est Cr Clr Drug Dosing 92.6 ml/min 08/09/23 00:40 Est GFR ( Amer) 70.0 ml/min 08/09/23 00:40 Est GFR (Non-Af Amer) 60.4 ml/min 08/09/23 00:40 BUN/Creatinine Ratio 20.6 (10-20) H 08/09/23 00:40 Glucose 110 mg/dl (70-99(Fasting)) H 08/09/23 00:40 Calcium 9.8 mg/dl (8.6-10.3) 08/09/23 00:40 Magnesium 1.9 mg/dl (1.7-2.4) 08/09/23 01:41 Total Bilirubin 0.2 mg/dl (0.2-1.0) 08/09/23 00:40 AST 13 U/L (13-39) 08/09/23 00:40 ALT 14 U/L (7-52) 08/09/23 00:40 Alkaline Phosphatase 65 U/L (34-104) 08/09/23 00:40 Troponin I High Sens 9.5 pg/ml (0-14) 08/09/23 00:40 Total Protein 7.5 gm/dl (6.0-8.3) 08/09/23 00:40 Albumin 4.3 gm/dl (3.4-5.0) 08/09/23 00:40 Globulin 3.2 gm/dl (2.5-4.0) 08/09/23 00:40 Albumin/Globulin Ratio 1.3 (0.9-2) 08/09/23 00:40 TSH 2.633 uIu/ml (0.300-4.500) 08/09/23 01:41 Ethyl Alcohol mg/dL < 10.0 mg/dl (<10.0) 08/09/23 01:41 ECG Additional Comments: ECG. Rapid A-fib with a rate of 141. QTc 465 Code Status & VTE Plan VTE Prophylaxis Plan VTE Prophylaxis will be ordered: Yes
[2023-08-09] MEDS: SODIUM CHLORIDE 0.9% 1,000 ML IV SCH (04:58)
[2023-08-09] MEDS: SODIUM CHLORIDE 0.9% 500 ML IV SCH (05:00)
[2023-08-09 05:01] LABS: Basophils # (auto) 0.02 K/uL (0.00-0.20); Basophils % (auto) 0.4 %; Eosinophils # (auto) 0.22 K/uL (0.00-0.50); Eosinophils % (auto) 3.9 %; Hematocrit (blood only) 39.7 % (37.0-47.0); Hemoglobin 13.1 g/dl (12.0-16.0); Immature Granulocytes # (auto) 0.01 K/uL (0.01-0.20); Immature Granulocytes % (auto) 0.2 %; Lymphocytes # (auto) 2.31 K/uL (1.20-3.40); Mean Corpuscular Hemoglobin 31.3 pg (25.0-34.0); Mean Platelet Volume 10.8 fL (9.4-12.4); Monocytes # (auto) 0.44 K/uL (0.11-0.59); Monocytes % (auto) 7.8 %; Neutrophils # (auto) 2.63 K/uL (1.40-6.50); Neutrophils % (auto) 46.7 %; Platelet Count 229 K/uL (130-400); RDW Coefficient of Variation 12.8 % (11.5-14.5); RDW Standard Deviation 44.5 fL (36.4-46.3); Red Blood Count 4.18 M/uL (4.20-5.40); White Blood Count 5.63 K/ul (4.8-10.8)
[2023-08-09 05:16] LABS: BUN Creatinine Ratio 21.6 (10-20); Calcium 9.2 mg/dl (8.6-10.3); Est GFR (African American) 78.8 ml/min; Magnesium 1.8 mg/dl (1.7-2.4); Potassium 4.6 mmol/L (3.5-5.1)
--- NOTE | 2023-08-09 07:07 | XRay Report ---
XR chest 1V portable HISTORY: Chest pain, nonspecific COMPARISON: Chest 04/10/2022. FINDINGS: There are low lung volumes. No pneumothorax. No pleural effusions. The heart remains mildly enlarged. No evidence for pulmonary edema. No acute fractures. No focal lung consolidations to sugge st a pneumonia. IMPRESSION: No significant change compared to the prior study. No acute process. ACT 112: Negative or not required by law. Electronically signed by: Luis A Piña M.D. 08/09/2023 7:06 AM
--- NOTE | 2023-08-09 07:38 | Cardiology Consultation ---
Date of Consultation August 09, 2023 Assessment & Plan (1) Atrial fibrillation with RVR: (2) Hypertension: (3) Obesity: (4) Alcohol use: Plan IMPRESSION: 67-year-old female with past medical history significant for paroxysmal atrial fibrillation and hypertension. Presents to [facility] emergency department last evening after having a few alcoholic beverages and developing tachycardic palpitations Patient was found to be in recurrent atrial fibrillation with RVR with rates up to the 140s PLAN: Atrial fibrillation with RVR: 1. Remain n.p.o. -- Consider possible DCCV, will discuss with Dr. Rice. 2. Continue metoprolol succinate 25 mg twice daily 3. IV diltiazem drip for rate control, unable to titrate due to low BPs, asymptomatic. 4. Continue Xarelto 20 mg daily for stroke prevention-- patient takes this medication in the morning at home will change in [place] 5. Patient is obese--notes mild CAMRYN on a home sleep study, consider formal screening for obstructive sleep apnea. 6. Alcohol seems to be a trigger for her paroxysms of atrial fibrillation, recommend reduction in alcohol use. 7. Echo pending-- further recommendations pending results. Hypertension: Blood pressure well controlled. 1. Normally maintained on losartan 50 mg daily in the evening-- will anticipate holding if BP remain soft. Case discussed with Dr. Rice-- further recommendations pending his assessment. I spent a total of 45 minutes on the date of service in preparation, delivery, and documentation of the care provided to the patient excluding any time spent in the performance of separately billed services. SIMONE Barlow Department of Cardiology, [facility] This chart was completed in part utilizing Speech Voice Recognition Software. Grammatical errors, random word insertions, pronoun errors, and incomplete sentences are an occasional consequence of this system due to software limitations, ambient noise, and hardware issues. Any formal questions or concerns about the content, text, or information contained within the body of this dictation should be directly addressed to the provider for clarification. Supervising Physician Co-Signing Physician Notes Attending attestation: Case reviewed with the advanced practitioner. I have personally performed a history and physical examination on the patient. I have reviewed the advanced practitioner's documentation on the date of service referenced in note, and I agree with, and take responsibility for the plan of care. Subjective: Patient in room C1A in the emergency department during my assessment as a telemetry overflow patient. She is currently comfortable. Atrial fibrillation persists, with average ventricular rate in the 120s and she is receiving diltiazem 10 mg/h intravenously. She describes onset of symptoms last evening at 1040 with a "flip-flop "sensation, no associated chest discomfort or shortness of breath, no syncope or near syncope She notes that she has a residence locally as well as in [place], [place]. She follows with Dr. Coleman as her primary managing member in [place]. She takes Xarelto 20 mg daily in the morning and has not missed any doses. Atrial fibrillation was initially recognized in March, when she was hospitalized at this institution for similar symptoms and she had undergone direct-current cardioversion performed by my partner Dr. Rivas on 04/12/2022 without need for recurrent cardioversion in the meantime. 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 No significant repolarization abnormalities. Impression/ Plan: -Problem list as noted above -Symptomatic recurrent atrial fibrillation. Remains in atrial fibrillation despite high-dose IV diltiazem infusion -Patient has been in atrial fibrillation for approximately 11 hours at this point as of 9:27 AM on 08/09/2023. -She is chronically anticoagulated with Xarelto with no missed doses. -Plan for repeat direct-current cardioversion today with anesthesia consult. Patient agreeable. I spent a total of 20 minutes coordinating, documenting, and providing care for this patient excluding time spent in the performance of separately billed services or time spent by another provider. Mode Rice DO History of Present Illness Reason for Consultation: Paroxysmal atrial fibrillation with RVR Requesting Physician: Major reyes Attending Physician: Katherine Mauricio MD History of Present Illness 67-year-old female presented to [facility] emergency department last evening due to complaints of palpitations and tachycardia. Notes having a cocktail and a glass of wine with friends last evening and started to feel poorly which prompted emergency department presentation. EKG was performed showing atrial fibrillation with RVR, 141 bpm. She was started on a diltiazem drip. Labs have been unremarkable thus far including a negative high-sensitivity troponin x 2. Echocardiogram pending. Chest x-ray is without acute findings Patient normally maintains on metoprolol succinate 25 mg twice daily and is anticoagulated with Xarelto 20 mg daily in the morning. Patient's permanent residence is in [place] where she is established with a managing member. She also has a residence in [place]. Upon entrance into the room patient resting in bed. Woke easily. No acute complaints. Dnies chest pain or shortness of breath. Able to notice her AFIB, mild palpitations. No lightheadedness, dizziness, syncope or near syncope. No orthopnea, PND, or increased lower extremity edema. No fever, chills, cough, hematochezia, melena, or hemoptysis. Compliant with all meds- has not missed any doses of her Xarelto. Past medical history: Hypertension Paroxysmal atrial fibrillation, initially diagnosed 07/2021. Status post DCCV 08/13/2021 History of palpitations secondary to sensed PVCs and SVT Chronic alcohol use, 2 glasses of alcohol daily Former tobacco use Obesity Mild CAMRYN, not on CPAP. Allergies Allergy/AdvReac Type Severity Reaction Status Date / Time adhesive Allergy Intermediate RASH/HIVES Verified 08/09/23 01:30 bacitracin Allergy Intermediate Rash Verified 08/09/23 01:30 [From Neosporin ([id number])] neomycin Allergy Intermediate Rash Verified 08/09/23 01:30 [From Neosporin ([id number])] polymyxin B Allergy Intermediate Rash Verified 08/09/23 01:30 [From Neosporin ([id number])] Home Medications Medication Instructions Recorded Confirmed Type alprazolam 0.5 mg tablet 0.25 mg PO DAILY PRN Anxiety 04/10/22 08/09/23 History cholecalciferol (vitamin D3) 50 2,000 unit PO DAILY 04/10/22 08/09/23 History mcg (2,000 unit) tablet (Vitamin D3) gabapentin 600 mg tablet 1,200 mg PO BID 04/10/22 08/09/23 History melatonin 5 mg tablet 5 mg PO HS PRN Sleep 04/10/22 08/09/23 History omega 7-mld-ikt-fish oil 1,200 mg 1,200 cap PO DAILY 04/10/22 08/09/23 History (144 mg-216 mg) capsule (Fish Oil) vitamin B complex 1 tab PO DAILY 04/10/22 08/09/23 History rivaroxaban 20 mg tablet (Xarelto) 20 mg PO DAILY #30 tabs 04/12/22 08/09/23 Rx losartan 50 mg tablet 50 mg PO DAILY 08/09/23 08/09/23 History lysine 500 mg tablet 500 mg PO DAILY 08/09/23 08/09/23 History metoprolol succinate 25 mg 25 mg PO DAILY 08/09/23 08/09/23 History tablet,extended release 24 hr multivitamin with minerals-folic 1 tab PO DAILY 08/09/23 08/09/23 History acid 80 mcg chewable tablet (Centrum Adult 50 Plus) Patient History Medical History High blood pressure Surgical History Hx of cholecystectomy Social History Smoking Status: Never smoker Hx Alcohol Use: Yes Alcohol type: wine Hx Substance Use: No Preferred Language: Colombian Communication Ability: Effective 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 Required: No Beliefs That Will Affect Care: None Current Living Situation: Spouse Feels Safe at Home: Yes Safety Concerns: Feels Safe At This Time Assistive Devices: None Review of Systems Review of Systems: All systems reviewed & are unremarkable except as noted in HPI & below Physical Exam Constitutional: WD/WN, vitals as above Eyes: PERRL, conjunctivae normal, anicteric sclerae Neck: normal visual inspection and trachea midline Respiratory: normal respiratory effort, lungs clear to auscultation Cardiovascular: Rate/Rhythm: + tachycardic and + irregularly irregular Heart Sounds: normal S1 and normal S2; no murmur Vessels: no JVD Extremities: no edema Skin: no rashes, warm and dry Neurologic: PERRL, EOMI, accommodation nl, no face palsy, no dysarthria Psychiatric: A+Ox3, euthymic affect Results & Data Vital Signs (Past 12 Hours) Vital Signs Temp Pulse Pulse Resp BP BP Pulse Ox 08/09/23 07:16 135 H 08/09/23 06:07 137 H 14 123/66 96 08/09/23 04:20 112 H 15 90/74 L 95 08/09/23 04:00 08/09/23 04:00 127 H 15 90/74 L 94 08/09/23 03:00 120 H 14 90/68 L 94 08/09/23 01:00 87 15 117/77 94 08/09/23 00:59 94 08/09/23 00:59 140 H 17 117/75 94 08/09/23 00:58 86 08/09/23 00:24 36.6 C 117 H 20 156/135 H 97 Pulse Ox O2 Del Method O2 Del Method 08/09/23 07:16 08/09/23 06:07 Room Air 08/09/23 04:20 Room Air 08/09/23 04:00 94 Room Air 08/09/23 04:00 Room Air 08/09/23 03:00 Room Air 08/09/23 01:00 Room Air 08/09/23 00:59 Room Air 08/09/23 00:59 Room Air 08/09/23 00:58 08/09/23 00:24 Room Air Laboratory Results Cardiac Enzymes 08/09/23 08/09/23 Range/Units 00:40 04:46 AST 13 (13-39) U/L Troponin I High Sens 9.5 9.0 (0-14) pg/ml Coagulation 08/09/23 Range/Units 00:40 PT 10.5 (9.0-12.0) Seconds APTT 30 (21-31) Seconds CBC 08/09/23 08/09/23 Range/Units 00:40 04:46 WBC 5.89 5.63 (4.8-10.8) K/ul RBC 4.53 4.18 L (4.20-5.40) M/uL Hgb 14.2 13.1 (12.0-16.0) g/dl Hct 42.9 39.7 (37.0-47.0) % Plt Count 251 229 (130-400) K/uL Neut # (Auto) 2.88 2.63 (1.40-6.50) K/uL Lymph # (Auto) 2.30 2.31 (1.20-3.40) K/uL Hemphill # (Auto) 0.46 0.44 (0.11-0.59) K/uL Eos # (Auto) 0.19 0.22 (0.00-0.50) K/uL Baso # (Auto) 0.03 0.02 (0.00-0.20) K/uL Comprehensive Metabolic Panel 08/09/23 08/09/23 Range/Units 00:40 04:46 Sodium 140 138 (136-145) mmol/L Potassium 4.1 4.6 (3.5-5.1) mmol/L Chloride 108 H 108 H (98-107) mmol/L Carbon Dioxide 24 26 (21-32) mmol/L BUN 20 19 (6-23) mg/dl Creatinine 0.97 0.88 (0.6-1.2) mg/dl Glucose 110 H 103 H (70-99(Fasting)) mg/dl Calcium 9.8 9.2 (8.6-10.3) mg/dl AST 13 (13-39) U/L ALT 14 (7-52) U/L Alkaline Phosphatase 65 (34-104) U/L Total Protein 7.5 (6.0-8.3) gm/dl Albumin 4.3 (3.4-5.0) gm/dl Intake and Output 08/08/23 08/09/23 08/09/23 22:59 06:59 14:59 Intake Total 1519.917 / 1519.917 Balance 1519.917 / 1519.917 Intake: IV 1519.917 / 1519.917 Sodium Chloride 0.9% 1,000 ml @ 1000 / 1000 999 mls/hr IV .Q1H1M ONE Rx#: [id number] Sodium Chloride 0.9% 500 ml @ 500 / 500 500 mls/hr IV .Q1H JESSICA Rx#: [id number] dilTIAZem HCL 125 mg In 19.917 / 19.917 Dextrose 5% 100 ml @ 5 MG/HR 5 mls/hr IV .Q24H JESSICA Rx#: [id number] Oral 0 / 0 Other: # Unmeasured Voids 2 Weight 154.3 kg Weight Measurement Method Built in [facility]
--- NOTE | 2023-08-09 08:22 | Electrocardiogram Report ---
Test Reason : Blood Pressure : / mmHG Vent. Rate : 141 BPM Atrial Rate : 000 BPM P-R Int : 000 ms QRS Dur : 084 ms QT Int : 304 ms P-R-T Axes : 000 028 055 degrees QTc Int : 465 ms Atrial fibrillation with rapid ventricular response Abnormal ECG When compared with ECG of 12-APR-2022 07:50, Atrial fibrillation has replaced Sinus rhythm Vent. rate has increased BY 79 BPM Confirmed by Adolph Weber ([id number]) on 08/09/2023 8:21:55 AM Referred By: REFERRED SELF Confirmed By:Livan Weber
[2023-08-09] MEDS: METOPROLOL SUCC 25MG EXT REL TAB PO SCH ×2 (08:27→09:07)
[2023-08-09] MEDS: CHOLECALCIFEROL 25 MCG (1000 UNITS) TAB PO SCH (08:27)
[2023-08-09] MEDS: LOSARTAN POTASSIUM 50 MG TAB PO SCH (08:27)
[2023-08-09] MEDS: FOLIC ACID 1 MG TAB PO SCH (08:27)
[2023-08-09] MEDS: GABAPENTIN 600 MG TAB PO SCH (08:27)
[2023-08-09] MEDS: CEROVITE ADV FORMULA TAB PO SCH (08:27)
[2023-08-09] MEDS: VITAMIN B COMPLEX TAB PO SCH (08:28)
[2023-08-09] MEDS: THIAMINE HCL 100 MG TAB PO SCH (08:28)
[2023-08-09] MEDS ORDERED: NON-FORMULARY MEDICATION (Lysine 500 mg Tablet) PO SCH (09:00)
[2023-08-09] MEDS: RIVAROXABAN 20 MG TAB PO SCH (09:32)
--- NOTE | 2023-08-09 10:52 | Anesthesiology Consultation ---
Date of Service August 09, 2023 Assessment & Plan Chart Review Chart Review: Acceptable Risk for Surgery and Patient NOT seen in Pre Admission Testing Consults Requested none ASA ASA3 Proposed Anesthesia Anesthesia Type: MAC Risk / Benefits Reviewed With: PT / POA / Parent / Guardian, Accepts Plan and Informed Consent Obtained History Surgery Operation Date: 08/09/23 11:00 Proposed Procedures p Cardioversion - Mode Rice DO Height/Weight Height: 5 ft 11 in Weight: 154.3 kg Allergies Allergy/AdvReac Type Severity Reaction Status Date / Time adhesive Allergy Intermediate RASH/HIVES Verified 08/09/23 01:30 bacitracin Allergy Intermediate Rash Verified 08/09/23 01:30 [From Neosporin ([id number])] neomycin Allergy Intermediate Rash Verified 08/09/23 01:30 [From Neosporin ([id number])] polymyxin B Allergy Intermediate Rash Verified 08/09/23 01:30 [From Neosporin ([id number])] Medications Home Medications Medication Instructions Recorded Confirmed Last Taken alprazolam 0.5 mg tablet 0.25 mg PO DAILY PRN Anxiety 04/10/22 08/09/23 Unknown cholecalciferol (vitamin D3) 50 2,000 unit PO DAILY 04/10/22 08/09/23 08/08/23 mcg (2,000 unit) tablet (Vitamin D3) gabapentin 600 mg tablet 1,200 mg PO BID 04/10/22 08/09/23 08/08/23 melatonin 5 mg tablet 5 mg PO HS PRN Sleep 04/10/22 08/09/23 Unknown omega 7-kqa-msv-fish oil 1,200 mg 1,200 cap PO DAILY 04/10/22 08/09/23 08/08/23 (144 mg-216 mg) capsule (Fish Oil) vitamin B complex 1 tab PO DAILY 04/10/22 08/09/23 08/08/23 rivaroxaban 20 mg tablet (Xarelto) 20 mg PO DAILY #30 tabs 04/12/22 08/09/23 08/08/23 losartan 50 mg tablet 50 mg PO DAILY 08/09/23 08/09/23 08/08/23 lysine 500 mg tablet 500 mg PO DAILY 08/09/23 08/09/23 08/08/23 metoprolol succinate 25 mg 25 mg PO DAILY 08/09/23 08/09/23 08/08/23 tablet,extended release 24 hr multivitamin with minerals-folic 1 tab PO DAILY 08/09/23 08/09/23 08/08/23 acid 80 mcg chewable tablet (Centrum Adult 50 Plus) Active Medications Generic Name Dose Route Start Last Admin Trade Name Walt PRN Reason Stop Dose Admin Folic Acid 1 mg 08/09/23 09:00 08/09/23 08:27 Folic Acid 1 Mg Tab PO 09/08/23 08:59 Not Given QAM JESSICA Gabapentin 1,200 mg 08/09/23 09:00 08/09/23 08:27 Gabapentin 600 Mg Tab PO 09/08/23 08:59 1,200 mg BID JESSICA Administration Diltiazem HCl 125 mg/ Dextrose 125 mls @ 10 mls/hr 08/09/23 02:00 08/09/23 06:05 IV 09/08/23 01:59 10 mg/hr .[id number] JESSICA 10 mls/hr Titration Protocol 10 MG/HR Sodium Chloride 1,000 mls @ 100 mls/hr 08/09/23 04:45 08/09/23 04:58 Nss IV 08/09/23 14:44 100 mls/hr .Q10H JESSICA Administration Metoprolol Succinate 25 mg 08/09/23 09:00 08/09/23 09:07 Metoprolol Succ 25mg Ext Rel Tab PO 09/08/23 08:59 25 mg BID JESSICA Administration Multivitamins/Minerals 1 tab 08/09/23 09:00 08/09/23 08:27 Cerovite Adv Formula Tab PO 09/08/23 08:59 Not Given DAILY JESSICA Rivaroxaban 20 mg 08/09/23 09:00 08/09/23 09:32 Rivaroxaban 20 Mg Tab PO 09/08/23 08:59 20 mg DAILY JESSICA Administration Thiamine HCl 100 mg 08/09/23 09:00 08/09/23 08:28 Thiamine Hcl 100 Mg Tab PO 09/08/23 08:59 Not Given QAM JESSICA Vitamin B Complex 1 tab 08/09/23 09:00 08/09/23 08:28 Vitamin B Complex Tab PO 09/08/23 08:59 1 tab DAILY JESSICA Administration Vitamin D 50 mcg 08/09/23 09:00 08/09/23 08:27 Cholecalciferol 25 Mcg (1000 Units) Tab PO 09/08/23 08:59 Not Given DAILY JESSICA NPO Date Last Intake of Fluids: 08/09/23 Time Last Intake of Fluids: 07:00 Last Intake of Fluids Comment: Sip with pills Date Last Intake of Solids: 08/08/23 Time Last Intake of Solids: 20:00 Past Medical History Medical History High blood pressure Exercise / Class Metabolic Activity II 4-5 Yardwork/Stairs/Walk up hill Past Surgical History Surgical History Hx of cholecystectomy Past Anesthesia History No Hx of Anesthesia Complications and No Family Hx of Anesthesia Complications History of PONV No Hx of PONV and No Hx of Motion Sickness Social History Smoking Status: Never smoker Hx Alcohol Use: Yes Alcohol type: wine alcohol intake frequency: 0-2 drinks per day Hx Substance Use: No substance use type: does not use Review of Systems ROS Unobtainable: All systems reviewed & are unremarkable except as noted in HPI & below Physical Exam Vital Signs Last Vital Signs Temp 36.6 C 08/09/23 00:24 Pulse 130 H 08/09/23 10:47 Resp 16 08/09/23 10:47 BP 95/66 L 08/09/23 10:47 Pulse Ox 97 08/09/23 10:47 O2 Del Method Room Air 08/09/23 10:47 ENMT Mouth: no TMJ abnormality Thyromental Distance: > or= 3.5 Finger Breadths Mallampati Class: III Neck normal visual inspection and trachea midline; neck extension not limited Respiratory normal respiratory effort Auscultation: lungs clear to auscultation bilaterally Cardiovascular Rate/Rhythm: regular rate and regular rhythm Heart Sounds: no murmur Musculoskeletal Spine: normal cervical ROM Extremities: full ROM of extremities Neurologic moves all extremities Psychiatric Orientation: alert and oriented x 3 Testing Laboratory Results 08/09/23 04:46 08/09/23 04:46 PT 10.5 Seconds (9.0-12.0) 08/09/23 00:40 INR 1.0 (0.9-1.1) 08/09/23 00:40 APTT 30 Seconds (21-31) 08/09/23 00:40 Electrocardiogram Date: 02/21/24 Atrial fibrillation with rapid ventricular response Abnormal ECG When compared with ECG of 12-APR-2022 07:50, Atrial fibrillation has replaced Sinus rhythm Vent. rate has increased BY 79 BPM Confirmed by Adolph Weber ([id number]) on 08/09/2023 8:21:55 AM
--- NOTE | 2023-08-09 11:22 | Post Operative Brief Note ---
Cardiology Brief Post Op Date of Surgery August 09, 2023 Pre & Post Diagnosis Operation Date: 08/09/23 11:00 Procedure Preprocedure diagnosis: Symptomatic atrial fibrillation with rapid ventricular response Post procedure diagnosis: Successful conversion to sinus rhythm Direct-current cardioversion procedure: After informed consent was obtained and timeout was performed the patient was sedated with the assistance of the anesthesia service receiving a total of 40 mg of IV lidocaine and 60 mg of IV propofol. Patient received a single dose of 200 J of synchronized biphasic energy with successful conversion to sinus rhythm. Post procedure EKG reveals normal sinus rhythm at [address] segments, corrected QT interval 426 ms. Director Systems Mode Rice DO Personalized Living Manager none Estimated Blood Loss 0 Findings Consistent with Post-Op Diagnosis Anesthesia Type MAC Complications none
--- NOTE | 2023-08-09 11:23 | Communication Note ---
Date of Service: August 09, 2023 Patient to be reassessed after lunch. If she feels well, we will plan to discharge her on her prior to hospital dose of metoprolol plus Xarelto. 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 Future considerations include reassessment for obstructive sleep apnea and electrophysiology consultation as an outpatient. Arnold Rice, DO
--- NOTE | 2023-08-09 11:26 | Anesthesiology Progress Note ---
Date of Service August 09, 2023 Anesthesia Post Procedure Vital Signs Vital Signs: Temp Pulse Pulse Resp BP BP Pulse Ox 08/09/23 11:16 67 20 95/62 L 94 08/09/23 10:47 130 H 16 95/66 L 97 08/09/23 08:30 128 H 22 94 08/09/23 08:00 103 H 17 96 08/09/23 07:38 128 H 15 93/61 L 98 08/09/23 07:16 135 H 08/09/23 06:07 137 H 14 123/66 96 08/09/23 06:04 123/66 08/09/23 04:20 112 H 15 90/74 L 95 08/09/23 04:00 08/09/23 04:00 127 H 15 90/74 L 94 08/09/23 03:00 120 H 14 90/68 L 94 08/09/23 01:00 87 15 117/77 94 08/09/23 00:59 94 08/09/23 00:59 140 H 17 117/75 94 08/09/23 00:58 86 08/09/23 00:24 36.6 C 117 H 20 156/135 H 97 Pulse Ox O2 Del Method O2 Del Method 08/09/23 11:16 Room Air 08/09/23 10:47 Room Air 08/09/23 08:30 Room Air 08/09/23 08:00 Room Air 08/09/23 07:38 Room Air 08/09/23 07:16 08/09/23 06:07 Room Air 08/09/23 06:04 08/09/23 04:20 Room Air 08/09/23 04:00 94 Room Air 08/09/23 04:00 Room Air 08/09/23 03:00 Room Air 08/09/23 01:00 Room Air 08/09/23 00:59 Room Air 08/09/23 00:59 Room Air 08/09/23 00:58 08/09/23 00:24 Room Air Transfer of Care Handoff Completed per policy Notes Mental Status: alert / awake / arousable Patient Amnestic to Procedure: Yes Nausea / Vomiting: adequately controlled Pain: adequately controlled Airway Patency, RR, SpO2: stable & adequate BP & HR: stable & adequate Hydration State: stable & adequate Anesthetic Complications: no major complications apparent and Pt Satisfied with anesthetic care
--- NOTE | 2023-08-09 13:14 | Communication Note ---
Date of Service: August 09, 2023 Patient reassessed. Tolerated lunch. Remains in SR in the 70s. Stable from cardiology perspective for discharge on COPYRIGHT MANAGER doses of metoprolol and Xarelto without change. She takes her Xarelto daily in the am. Follow up with primary pile header, Dr Coleman, in [place].
--- NOTE | 2023-08-09 14:06 | Hospitalist Progress Note ---
Date of Service August 09, 2023 delayed entry date of service noted above Assessment & Plan (1) Atrial fibrillation with RVR: Plan: per admitting service notes: 67-year-old female with past medical history significant for hypertension, PVCs ,A-fib, past tobacco abuse comes with palpitations and found to be in rapid A- fib. Patient is from [facility]. She also has a house in [place]. Her PCP and nursing techn are in [place]. She is visiting [place]. She drinks 2 glasses of alcohol every day. She drank 1 glass of alcohol outside with her friends. She came home and drank 1 glass of wine. States she started not feeling well. [place] palpitations and came here. No dizziness. No headache. No blurred visions. No runny nose or sore throat. No cough. No fevers. No chest pain or shortness of breath no nausea. No abdominal pain. Normal bowel and bladder movements. Patient was here in March 2022 with rapid A-fib. That was first time she was found to have A-fib. At that time she was s/p cardioversion. Patient states since then she was doing okay. Whenever her heart rate goes up she takes extra metoprolol. She took extra metoprolol tonight also but it was not helping so she came to the ER . Atrial fibrillation with RVR ER started on Cardizem drip which will be continued Continue home Xarelto Continue home metoprolol Monitoring telemetry Echocardiogram Will keep her n.p.o. Follow repeat labs Consult cardiology in a.m. for further recommendations 08/09 evaluated by Sewing Machine Repairer Dr. Rice s/p Cardioversion patient successfully converted to SR cleared for d/c by Cardiology continue usual Metoprolol and Xarelto consider evaluation for obstructive sleep apnea and EPS referra History of hypertension continue usual meds Alcoholism no signs of withdrawal advised re: abstinence and cessation Morbid obesity outpatient ff up sleep study as outpatient DVT prophylaxis On Xarelto Disposition d/c home Plan By CMS guidelines, a determination that the admission or continued stay is not medically necessary has been made by a member of the UR committee and a physician for this hospital stay, therefore a Code 44 will be completed and the Inpatient admission will be changed to outpatient. Admission and Anticipated Discharge Date Admission Date: August 09, 2023 Subjective ff up for a fib rvr, etc seen resting in bed, comfortable sitting up, in good spirits states she feels fine overall no chest pain, dyspnea, palpitations, dizziness back to baseline no headache, focal neuro symptoms, abdominal pain, nausea/vomiting, abdominal pain no other symptoms Review of Systems Review of Systems: all noted and negative except for above Physical Exam Physical Exam: General- oriented x 3, not in distress, speaks in sentences with no effort or accessory muscle use Eyes- anicteric Neck- no JVD Lungs- clear breath sounds bilaterally, no rales/wheezes Heart- normal rate, regular rhythm; no murmurs Abdomen- normal bowel sounds, nondistended, soft, nontender Extremities- no pretibial edema, no calf tenderness Neuro- alert, oriented x 3; no gross focal neurologic deficits Skin- warm & dry Results & Data Results & Data Vital Signs (Past 12 Hours) Vital Signs Pulse Pulse Resp BP BP Pulse Ox Pulse Ox 08/09/23 12:00 59 L 12 96/66 L 97 08/09/23 11:16 67 20 95/62 L 94 08/09/23 10:47 130 H 16 95/66 L 97 08/09/23 10:30 112 H 13 123/75 95 08/09/23 10:00 95 H 16 102/71 94 08/09/23 09:30 105 H 15 112/71 96 08/09/23 09:09 120 H 18 110/73 96 08/09/23 09:00 109 H 14 98/73 L 92 08/09/23 08:30 128 H 22 94 08/09/23 08:00 103 H 17 96 08/09/23 07:38 128 H 15 93/61 L 98 08/09/23 07:16 135 H 08/09/23 06:07 137 H 14 123/66 96 08/09/23 06:04 123/66 08/09/23 04:20 112 H 15 90/74 L 95 08/09/23 04:00 94 08/09/23 04:00 127 H 15 90/74 L 94 08/09/23 03:00 120 H 14 90/68 L 94 O2 Del Method O2 Del Method 08/09/23 12:00 Room Air 08/09/23 11:16 Room Air 08/09/23 10:47 Room Air 08/09/23 10:30 Room Air 08/09/23 10:00 Room Air 08/09/23 09:30 Room Air 08/09/23 09:09 Room Air 08/09/23 09:00 Room Air 08/09/23 08:30 Room Air 08/09/23 08:00 Room Air 08/09/23 07:38 Room Air 08/09/23 07:16 08/09/23 06:07 Room Air 08/09/23 06:04 08/09/23 04:20 Room Air 08/09/23 04:00 Room Air 08/09/23 04:00 Room Air 08/09/23 03:00 Room Air all noted and reviewed including below
--- NOTE | 2023-08-09 14:18 | Electrocardiogram Report ---
Test Reason : Blood Pressure : / mmHG Vent. Rate : 065 BPM Atrial Rate : 065 BPM P-R Int : 156 ms QRS Dur : 094 ms QT Int : 410 ms P-R-T Axes : 010 023 024 degrees QTc Int : 426 ms Poor data quality, interpretation may be adversely affected Normal sinus rhythm Low voltage QRS Borderline ECG When compared with ECG of 09-AUG-2023 00:33, Sinus rhythm has replaced Atrial fibrillation Vent. rate has decreased BY 76 BPM Confirmed by Adolph Weber ([id number]) on 08/09/2023 2:18:10 PM Referred By: REFERRED SELF Confirmed By:Livan Weber
[2023-08-09] MEDS ORDERED: RIVAROXABAN 20 MG TAB PO SCH (16:30)
--- NOTE | 2023-08-09 16:55 | Discharge Summary ---
Discharge Summary Date of Service August 09, 2023 delayed entry date of service noted above Notes For Next Care Provider Medication Changes From Visit none Admission HPI Per Admitting Provider 67-year-old female with past medical history significant for hypertension, PVCs ,A-fib, past tobacco abuse comes with palpitations and found to be in rapid A- fib. Patient is from [facility] [address]. She also has a house in [place]. Her PCP and sliver former are in [place]. She is visiting [place]. She drinks 2 glasses of alcohol every day. She drank 1 glass of alcohol outside with her friends. She came home and drank 1 glass of wine. States she started not feeling well. [place] palpitations and came here. No dizziness. No headache. No blurred visions. No runny nose or sore throat. No cough. No fevers. No chest pain or shortness of breath no nausea. No abdominal pain. Normal bowel and bladder movements. Patient was here in March 2022 with rapid A-fib. That was first time she was found to have A-fib. At that time she was s/p cardioversion. Patient states since then she was doing okay. Whenever her heart rate goes up she takes extra metoprolol. She took extra metoprolol tonight also but it was not helping so she came to the ER . Past medical history. As mentioned above Past surgical history. Tonsillectomy adenoidectomy, cholecystectomy, knee surgeries Social history. Past tobacco use. Alcohol states drinks 2 drinks every day. Family history significant for heart disease Admission Exam Per Admitting Provider General- Not in distress Head- atraumatic Eyes- PERRL. ENT- oropharynx clear Neck- supple, no JVD. Lungs- clear to auscultation no wheezing or crackles Heart- irregular rhythm;tachycardia no murmur, no gallop. Abdomen- normal bowel sounds, soft, nontender, no distension. Extremities- no pretibial edema, no erythema seen Neuro- alert, oriented PERRL, no facial palsy; no dysarthria; moves extremities. Skin- warm & dry Principal Dx & Hospital Course #1 = Principal Diagnosis (1) Atrial fibrillation with RVR: (1) Atrial fibrillation with RVR: Plan: per admitting service notes: 67-year-old female with past medical history significant for hypertension, PVCs ,A-fib, past tobacco abuse comes with palpitations and found to be in rapid A- fib. Patient is from [facility] [address]. She also has a house in [place]. Her PCP and sliver former are in [place]. She is visiting [place]. She drinks 2 glasses of alcohol every day. She drank 1 glass of alcohol outside with her friends. She came home and drank 1 glass of wine. States she started not feeling well. [place] palpitations and came here. No dizziness. No headache. No blurred visions. No runny nose or sore throat. No cough. No fevers. No chest pain or shortness of breath no nausea. No abdominal pain. Normal bowel and bladder movements. Patient was here in March 2022 with rapid A-fib. That was first time she was found to have A-fib. At that time she was s/p cardioversion. Patient states since then she was doing okay. Whenever her heart rate goes up she takes extra metoprolol. She took extra metoprolol tonight also but it was not helping so she came to the ER . Atrial fibrillation with RVR ER started on Cardizem drip which will be continued Continue home Xarelto Continue home metoprolol Monitoring telemetry Echocardiogram Will keep her n.p.o. Follow repeat labs Consult cardiology in a.m. for further recommendations 08/[address]isher [address] Rice s/p Cardioversion patient successfully converted to SR cleared for d/c by Cardiology continue usual Metoprolol and Xarelto consider evaluation for obstructive sleep apnea and EPS referra History of hypertension continue usual meds Alcoholism no signs of withdrawal advised re: abstinence and cessation Morbid obesity outpatient ff up sleep study as outpatient DVT prophylaxis On Xarelto Disposition d/c home Plan By CMS guidelines, a determination that the admission or continued stay is not medically necessary has been made by a member of the UR committee and a physician for this hospital stay, therefore a Code 44 will be completed and the Inpatient admission will be changed to outpatient. Discharge Exam General- oriented x 3, not in distress, speaks in sentences with no effort or accessory muscle use Eyes- anicteric Neck- no JVD Lungs- clear breath sounds bilaterally, no rales/wheezes Heart- normal rate, regular rhythm; no murmurs Abdomen- normal bowel sounds, nondistended, soft, nontender Extremities- no pretibial edema, no calf tenderness Neuro- alert, oriented x 3; no gross focal neurologic deficits Skin- warm & dry Updated Medication List Medication Instructions Recorded Confirmed Type alprazolam 0.5 mg tablet 0.25 mg PO DAILY PRN Anxiety 04/10/22 08/09/23 History cholecalciferol (vitamin D3) 50 2,000 unit PO DAILY 04/10/22 08/09/23 History mcg (2,000 unit) tablet (Vitamin D3) gabapentin 600 mg tablet 1,200 mg PO BID 04/10/22 08/09/23 History melatonin 5 mg tablet 5 mg PO HS PRN Sleep 04/10/22 08/09/23 History omega 3-vot-phl-fish oil 1,200 mg 1,200 cap PO DAILY 04/10/22 08/09/23 History (144 mg-216 mg) capsule (Fish Oil) vitamin B complex 1 tab PO DAILY 04/10/22 08/09/23 History rivaroxaban 20 mg tablet (Xarelto) 20 mg PO DAILY #30 tabs 04/12/22 08/09/23 Rx losartan 50 mg tablet 50 mg PO DAILY 08/09/23 08/09/23 History lysine 500 mg tablet 500 mg PO DAILY 08/09/23 08/09/23 History metoprolol succinate 25 mg 25 mg PO DAILY 08/09/23 08/09/23 History tablet,extended release 24 hr multivitamin with minerals-folic 1 tab PO DAILY 08/09/23 08/09/23 History acid 80 mcg chewable tablet (Centrum Adult 50 Plus) Hospital Stay Data Consultations 08/09/23 08:00 Consult Cardiology Routine 08/09/23 09:19 Consult Anesthesiology Routine Procedures Performed Operation Date: 08/09/23 11:00 Actual Procedures p Cardioversion - Mode Rice, Diagnostic Imagining Performed Laboratory Results WBC 5.63 K/ul (4.8-10.8) 08/09/23 04:46 RBC 4.18 M/uL (4.20-5.40) L 08/09/23 04:46 Hgb 13.1 g/dl (12.0-16.0) 08/09/23 04:46 Hct 39.7 % (37.0-47.0) 08/09/23 04:46 MCV 95.0 fL (80.0-100.0) 08/09/23 04:46 MCH 31.3 pg (25.0-34.0) 08/09/23 04:46 MCHC 33.0 g/dL (32.0-36.0) 08/09/23 04:46 RDW Std Deviation 44.5 fL (36.4-46.3) 08/09/23 04:46 RDW Coeff of Jian 12.8 % (11.5-14.5) 08/09/23 04:46 Plt Count 229 K/uL (130-400) 08/09/23 04:46 MPV 10.8 fL (9.4-12.4) 08/09/23 04:46 Immature Gran % (Auto) 0.2 % 08/09/23 04:46 Neut % (Auto) 46.7 % 08/09/23 04:46 Lymph % (Auto) 41.0 % 08/09/23 04:46 Gall[place] % (Auto) 7.8 % 08/09/23 04:46 Eos % (Auto) 3.9 % 08/09/23 04:46 Baso % (Auto) 0.4 % 08/09/23 04:46 Neut # (Auto) 2.63 K/uL (1.40-6.50) 08/09/23 04:46 Lymph # (Auto) 2.31 K/uL (1.20-3.40) 08/09/23 04:46 Gall[place] # (Auto) 0.44 K/uL (0.11-0.59) 08/09/23 04:46 Eos # (Auto) 0.22 K/uL (0.00-0.50) 08/09/23 04:46 Baso # (Auto) 0.02 K/uL (0.00-0.20) 08/09/23 04:46 Immature Gran # (Auto) 0.01 K/uL (0.01-0.20) 08/09/23 04:46 PT 10.5 Seconds (9.0-12.0) 08/09/23 00:40 INR 1.0 (0.9-1.1) 08/09/23 00:40 APTT 30 Seconds (21-31) 08/09/23 00:40 PTT Ratio 1.1 08/09/23 00:40 Sodium 138 mmol/L (136-145) 08/09/23 04:46 Potassium 4.6 mmol/L (3.5-5.1) 08/09/23 04:46 Chloride 108 mmol/L (98-107) H 08/09/23 04:46 Carbon Dioxide 26 mmol/L (21-32) 08/09/23 04:46 Anion Gap 4 (3-11) 08/09/23 04:46 BUN 19 mg/dl (6-23) 08/09/23 04:46 Creatinine 0.88 mg/dl (0.6-1.2) 08/09/23 04:46 Est Cr Clr Drug Dosing 102.0 ml/min 08/09/23 04:46 Est GFR ( Amer) 78.8 ml/min 08/09/23 04:46 Est GFR (Non-Af Amer) 68.0 ml/min 08/09/23 04:46 BUN/Creatinine Ratio 21.6 (10-20) H 08/09/23 04:46 Glucose 103 mg/dl (70-99(Fasting)) H 08/09/23 04:46 Calcium 9.2 mg/dl (8.6-10.3) 08/09/23 04:46 Magnesium 1.8 mg/dl (1.7-2.4) 08/09/23 04:46 Total Bilirubin 0.2 mg/dl (0.2-1.0) 08/09/23 00:40 AST 13 U/L (13-39) 08/09/23 00:40 ALT 14 U/L (7-52) 08/09/23 00:40 Alkaline Phosphatase 65 U/L (34-104) 08/09/23 00:40 Troponin I High Sens 4.6 pg/ml (0-14) D 08/09/23 11:39 Total Protein 7.5 gm/dl (6.0-8.3) 08/09/23 00:40 Albumin 4.3 gm/dl (3.4-5.0) 08/09/23 00:40 Globulin 3.2 gm/dl (2.5-4.0) 08/09/23 00:40 Albumin/Globulin Ratio 1.3 (0.9-2) 08/09/23 00:40 TSH 2.633 uIu/ml (0.300-4.500) 08/09/23 01:41 Ethyl Alcohol mg/dL < 10.0 mg/dl (<10.0) 08/09/23 01:41 Impressions Chest X-Ray 08/09/23 00:30 XR chest 1V portable HISTORY: Chest pain, nonspecific COMPARISON: Chest 04/10/2022. FINDINGS: There are low lung volumes. No pneumothorax. No pleural effusions. The heart remains mildly enlarged. No evidence for pulmonary edema. No acute fractures. No focal lung consolidations to suggest a pneumonia. IMPRESSION: No significant change compared to the prior study. No acute process. ACT 112: Negative or not required by law. Electronically signed by: Luis A Pñia M.D. 08/09/2023 7:06 AM Pending Results Patient Have Any Pending Studies at Discharge: No Discharge Instructions Given to Patient (Per Discharging Provider) PLEASE CONTINUE YOUR PRESENT MEDICATION REGIMEN. PLEASE CALL YOUR PRIMARY CARE PHYSICIAN OR RETURN TO THE ER IF WITH WORSENING OF SYMPTOMS, INCLUDING CHEST PAIN, PALPITATIONS, DIZZINESS, SHORTNESS OF BREATH, ETC FOLLOW UP WITH PRIMARY CARE PHYSICIAN AND WET MACHINE TENDER IN 1-2 WEEKS. Total Time Total Time Spent Total Time Spent (In Minutes): >30 minutes
[2023-08-09] MEDS ORDERED: LOSARTAN POTASSIUM 50 MG TAB PO SCH (21:00)
--- NOTE | 2023-08-12 17:20 | Coding Query ---
BMI To promote full compliance with coding requirements relating to patient care, physician participation is requested in all cases of salesperson yard goods uncertainty. Please assist us with the question(s) below: Please place an X within the parenthesis (x). If other, please document: BMI ( ) was documented in this record for this patient. Morbid Obesity If the BMI is significant, please check the box that provides a more specific associated diagnosis: ( ) Overweight/Obese ( ) Obesity ( ) Morbid obesity ( ) Obesity Hypoventilation Syndrome (OHS) ( ) [place] weight, not significant ( ) Underweight/Thin ( ) Other, please specify Thank you Jere GASTON
== END 2023-08-09 14:49 | disposition home or self-care (01) | DRG 309 ==
LOC: ED 00:20 → INTOOBSV 02:57 → SUATTDRO 02:57 → EDINP 02:57